=== PATIENT | male | born 1950 | race Caucasian/White ===

== ENCOUNTER → 2023-08-29 07:39 | Outpatient (REF) | payer MEDICARE, SELFPAY | LOC: RAD 07:39 | PROVIDERS: ATTENDING PHYSICIAN Family Medicine | DX: I73.9 Peripheral vascular disease, unspecified (principal); F17.200 Nicotine dependence, unspecified, uncomplicated; J44.9 Chronic obstructive pulmonary disease, unspecified; F17.210 Nicotine dependence, cigarettes, uncomplicated | CPT/HCPCS: 71271; 93922; 93925 ==

== ENCOUNTER 2024-01-19 04:17 | Emergency (ER) | payer MEDICARE, SELFPAY ==
[2024-01-19] VITALS (8 sets, daily range): BP systolic 163–217; BP diastolic 91–148; BMI 23.3
--- NOTE | 2024-01-19 04:39 | EDRN ---
Pt says he asked his phone where his heart is and when told it is on the left side of his body, pt drove to ED. Pt says about 1 hour ago he woke with pain L side of his chest that is fading now. No sob, abd pain, n/v, fever/chills, diaphoresis,
dizziness, weakness. Pt denies radiation of cp. Pt has chronic cough. Pt had similar pain 'years ago' and says he had a heart attack but has been fine since. Pt did not take anything for cp.
[2024-01-19 04:57] LABS: % Basophils 0.4 % (0-2); % Eosinophils 0.8 % (0-6); % Immature Granulocytes 0.4 % (0-0.5); % Lymphocytes 15.1 % (20.5-51.1); % Monocytes 5.8 % (1.7-9.3); % Neutrophils 77.5 % (42.2-75.2); Absolute Eosinophils 0.1 10^3/uL (0-0.7); Absolute Lymphocytes 1.2 10^3/uL (1.2-3.4); Absolute Monocytes 0.5 10^3/uL (0.1-0.6); Hematocrit 40.1 % (39.0-52.0); Hemoglobin 13.7 g/dL (13.0-18.0); Mean Corp Hgb Conc. 34.2 g/dL (33.0-37.0); Mean Corpuscular Hgb 35.8 pg (27.0-31.0); Mean Corpuscular Volume 104.7 fL (80.0-94.0); Mean Platelet Volume 9.9 fL (7.4-10.4); Nucleated Red Blood Cells % 0 % (-); Platelet Count 144 10^3/uL (130-400); Red Blood Cell Count 3.83 10^6/uL (4.70-6.10); Red Cell Dist. Width 13.2 % (11.5-14.5); White Blood Cell Count 7.8 10^3/uL (4.8-10.8)
--- NOTE | 2024-01-19 05:14 | ED.GENMED ---
History of Present Illness
<Edmond Wang MD - Last Filed: 01/19/24 05:20>
General
Chief Complaint: Chest Pain
Source: patient
Exam Limitations: none
Time Seen by Provider: 01/19/24 04:34
Nursing documentation reviewed up to this point in time: agreed with
History of Present Illness
History of Present Illness:
73-year-old male with a past medical history of hypertension, hyperlipidemia, seizures, smoker, chronic alcohol use, CAD status post stent who presents to the emergency room for evaluation of chest pain. Patient reports onset of symptoms a few
hours ago while at rest and they have been constant and he says improved a bit since then. He reports a vague aching in the left chest. He reports associated sensation of palpitations or heart racing. Reports some mild shortness of breath. He
denies any nausea, vomiting, diaphoresis. He has a chronic cough no worse than usual. Denies any recent fevers or chills or URI symptoms. Denies any swelling or pain in the legs. He denies any other complaints.
Past History
<Edmond Wang MD - Last Filed: 01/19/24 05:20>
Past History
ED Past Medical History: CAD, HTN, Hypercholesterolemia, MT and Seizures
ED Past Surgical History: Cardiac
Social History
Tobacco: Smoker
Alcohol: Chronic alcoholic
Drug: None
Personal:
Living: with family
Employment: Retired
Family History
Family History: Other (nc)
Review of Systems
<Edmond Wang MD - Last Filed: 01/19/24 05:20>
Review of Systems
All Other Systems: ROS reviewed and negative except as documented in HPI and ROS
Constitutional: Denies fever or chills
EENT: Denies sore throat or runny nose
Respiratory: Reports cough and trouble breathing
Cardiac: Reports chest pain and palpitations; Denies diaphoresis or syncope
ABD/GI: Denies abdominal pain, nausea or vomiting
: Denies flank pain
Musculoskeletal: Denies edema, neck pain or back pain
Neurological: Denies dizzy or headache
Phy Exam
<Edmond Wang MD - Last Filed: 01/19/24 05:20>
Physical Exam
Physical Exam:
General: Awake, alert, oriented x3; no acute distress
Head: Normocephalic, atraumatic
Eyes: Conjunctiva normal
Throat: Airway intact, handling secretions
Neck: Trachea midline, supple without meningismus
Lungs: Breathing comfortably no distress, occasional scattered wheezing
Heart: Regular rate and rhythm, no murmurs, gallops, or rubs
Abd: Soft, non distended, nontender
Neuro: No gross deficits
Extremities: No edema in extremities, equal pulses in all extremities
Scores
<Edmond Wang MD - Last Filed: 01/19/24 05:20>
Heart Failure Risk
Heart Failure Risk Score: Not Applicable
Heart Score for Chest Pain Patients
STEMI patient?: No
History: Slightly or Non-Suspicious
ECG: Normal
Age: >/= 65 years
Risk Factors: >/= 3 Risk Factors or History of CAD
Troponin: </= Normal Limit
Heart Score for Chest Pain Patients: 4
Heart Score Risk: 20.3% MACE over next 6 weeks
Withdrawal Assessment of Alcohol
Withdrawal Assessment Completed?: Not applicable
<Collin Vega DO - Last Filed: 01/19/24 08:43>
Heart Score for Chest Pain Patients
Heart Score for Chest Pain Patients: 4
Heart Score Risk: 20.3% MACE over next 6 weeks
Course
<Edmond Wang MD - Last Filed: 01/19/24 05:20>
Orders/Labs/Results
Orders:
Orders
01/19/24 04:18
Electrocardiogram (*1) Urgent
Reason for Study: Chest Pain
EKG- Treatment ONCE
01/19/24 04:36
CR Chest - 2 Views Urgent
Comment:
Reason For Exam: cough, chest pain
01/19/24 04:43
Alcohol Urgent
COVID-19 Antigen Urgent
Source: Nasal Swab
Complete Blood Count/With Diff Urgent
Comprehensive Metabolic Panel Urgent
Lipase Urgent
Comment: ADDED
Troponin I Urgent
Influenza A+B Rapid Molecular Urgent
QUYEN Source: Nasal Swab
Specimen Description:
01/19/24 05:23
D-Dimer Urgent
01/19/24 05:25
Add On- LAB Urgent
Tests Added?: alcohol and lipase
01/19/24 06:36
CT Chest Pe Study Urgent
Comment:
Reason For Exam: Chest pain, elevated dimer
01/19/24 07:53
Troponin I Urgent
01/19/24 08:42
Morphine Sulfate 4 mg IV NOW STA
Abnormal Lab Results
01/19/24 01/19/24
04:43 05:23
RBC 3.83 L 10^6/uL
(4.70-6.10)
MCV 104.7 H fL
(80.0-94.0)
MCH 35.8 H pg
(27.0-31.0)
Neutrophils % 77.5 H %
(42.2-75.2)
Lymphocytes % 15.1 L %
(20.5-51.1)
D-Dimer 6.04 H ug/mlFEU
(0.00-0.50)
Creatinine 0.6 L mg/dL
(0.7-1.3)
Glucose 102 H mg/dl
(70-99)
01/19/24 04:43
01/19/24 04:43
Vital Signs
Initial and Last Documented VS:
Initial Vital Signs
Temp Pulse Resp Pulse Ox
98.9 F 83 26 98
01/19/24 04:26 01/19/24 04:26 01/19/24 04:26 01/19/24 04:26
Last Documented Vital Signs
Temp Pulse Resp BP Pulse Ox
98.9 F 62 21 163/91 93
01/19/24 04:26 01/19/24 06:00 01/19/24 06:00 01/19/24 06:05 01/19/24 06:00
<Collin Vega, DO - Last Filed: 01/19/24 08:43>
Orders/Labs/Results
Orders:
Orders
01/19/24 04:18
Electrocardiogram (*1) Urgent
Reason for Study: Chest Pain
EKG- Treatment ONCE
01/19/24 04:36
CR Chest - 2 Views Urgent
Comment:
Reason For Exam: cough, chest pain
01/19/24 04:43
Alcohol Urgent
COVID-19 Antigen Urgent
Source: Nasal Swab
Complete Blood Count/With Diff Urgent
Comprehensive Metabolic Panel Urgent
Lipase Urgent
Comment: ADDED
Troponin I Urgent
Influenza A+B Rapid Molecular Urgent
QUYEN Source: Nasal Swab
Specimen Description:
01/19/24 05:23
D-Dimer Urgent
01/19/24 05:25
Add On- LAB Urgent
Tests Added?: alcohol and lipase
01/19/24 06:36
CT Chest Pe Study Urgent
Comment:
Reason For Exam: Chest pain, elevated dimer
01/19/24 07:53
Troponin I Urgent
01/19/24 08:42
Morphine Sulfate 4 mg IV NOW STA
Abnormal Lab Results
01/19/24 01/19/24
04:43 05:23
RBC 3.83 L 10^6/uL
(4.70-6.10)
MCV 104.7 H fL
(80.0-94.0)
MCH 35.8 H pg
(27.0-31.0)
Neutrophils % 77.5 H %
(42.2-75.2)
Lymphocytes % 15.1 L %
(20.5-51.1)
D-Dimer 6.04 H ug/mlFEU
(0.00-0.50)
Creatinine 0.6 L mg/dL
(0.7-1.3)
Glucose 102 H mg/dl
(70-99)
01/19/24 04:43
01/19/24 04:43
Vital Signs
Initial and Last Documented VS:
Initial Vital Signs
Temp Pulse Resp Pulse Ox
98.9 F 83 26 98
01/19/24 04:26 01/19/24 04:26 01/19/24 04:26 01/19/24 04:26
Last Documented Vital Signs
Temp Pulse Resp BP Pulse Ox
98.9 F 62 21 163/91 93
01/19/24 04:26 01/19/24 06:00 01/19/24 06:00 01/19/24 06:05 01/19/24 06:00
<Edmond Wang MD - Last Filed: 01/19/24 05:20>
MDM/Problems Addressed
Differential Diagnosis Includes:
Angina/ACS, costochondritis, pneumonia, PE, dysrhythmia, pericarditis, pancreatitis/gastritis
MDM/Problems Addressed:
73-year-old male presents to the ER for evaluation of chest pain for the past few hours associated with occasional palpitations and shortness of breath. Hypertensive otherwise normal vitals. Physical exam as above. EKG shows no STEMI. Plan to
check labs including a CBC and a CMP. Check troponins. Check D-dimer. Check chest x-ray. Will monitor on telemetry, reassess after the above.
Chronic conditions affecting care:
Smoker, CAD, hypertension, hyperlipidemia
Chronic conditions affecting care: HTN and CAD
<Edmond Wang MD - Last Filed: 01/19/24 05:20>
*Radiology
Radiology exam reviewed: preliminary read by ED provider
*Pulse Oximetry
Patient hypoxic: no
*EKG
Interpreted by ED Provider?: Yes
Heart Rate: 72
Rate: normal
Rhythm: sinus
Wiggins: left axis deviation
Interval: normal interval
QRS Pattern: other (Bifascicular block)
Ischemia: non-specific ST changes
*Critical Care Note
Total Time (30-74mins, 75-104mins- exclusive of procedures): Not Applicable
Data Reviewed
Review of Other/Old Records Reveals: Labs and Records
Source: patient and records
<Collin Vega DO - Last Filed: 01/19/24 08:43>
*Critical Care Note
Total Time (30-74mins, 75-104mins- exclusive of procedures): 35 min
comment:
The high probability of a clinically significant, sudden or life threatening deterioration of the cardiothoracic system(s) required my full and direct attention, intervention and personal management. The aggregate critical care time was 35 minutes.
This time is in addition to time spent performing reported procedures but includes the following:
[x] Data Review and interpretation
[x] Patient assessment and monitoring of vital signs
[x] Documentation
[x] Medication orders and management
<Collin Vega DO - Last Filed: 01/19/24 08:43>
Update Note
Update Note:
6:40 AM care of patient was initially transitioned pending D-dimer and troponin for atypical chest pain. D-dimer elevated. Will obtain CT PE. On evaluation of the chest x-ray, I do not appreciate any acute pneumonia or pleural effusion but I do
notice left-sided subcu emphysema.
8:[address] is consistent with acute rib fractures with moderate/severe subcu emphysema. There is a small apical pneumothorax. Given the recent fall with the CT findings, will discuss case with trauma at [facility]
8:25 AM Case discussed with [facility] trauma Dr. Retana who accepted patient and will admit to the ICU. Given the recent fall, I discussed obtaining CT head and neck but he Dr. Retana states that we can hold off and he will perform the scans at
[facility] if needed
ED Attending Note
<Edmond Wang MD - Last Filed: 01/19/24 05:20>
-
Portions of this chart may have been created with voice recognition software.� Occasional wrong word or��sound alike� substitutions may have occurred due to the inherent limitations of voice recognition software.
Discharge Plan
Departure
Patient Disposition: Acute Care Hospital
Date of Disposition: 01/19/24
Time of Disposition: 08:42
Patient with high blood pressure during this ER visit?: Yes
Discharge Problem:
Multiple rib fractures, Pneumothorax, Subcutaneous emphysema due to trauma
Prescriptions:
No Action
carvedilol [Coreg] 25 MG tablet
25 mg PO DAILY
levetiracetam 500 MG tablet
500 mg PO BID
aspirin 81 MG tablet,chewable
81 mg PO DAILY
atorvastatin 80 mg Tablet
80 mg PO DAILY
valsartan 80 mg Tablet
80 mg PO DAILY
cyanocobalamin (vitamin B-12) 5,000 mcg Capsule
5,000 mcg PO DAILY
Referrals:
Eliu Leone MD [Family Provider] - Follow up in 2-3 days
Hospital Transfer
Other hospital: [facility]
I certify that the patient requires transfer: Yes
Discussed case with accepting physician: Dr. Retana
Reason for transfer: availability of service and specialties available
Interventions
Interventions:
*Risk Screen - Suicide Last Done: 01/19/24 04:28
*General Assessment Last Done: 01/19/24 04:34
*Neglect/Abuse Screening Last Done: 01/19/24 04:34
ED- Fall Risk Assessment Last Done: 01/19/24 05:04
*ED COVID-19 Vaccine History Last Done: 01/19/24 04:19
ED- Cardiac Assessment Last Done: 01/19/24 04:55
Discharge Date and Time
Print Language: MONTENEGRIN
[2024-01-19 05:15] LABS: COVID-19 Antigen Negative (Negative)
[2024-01-19 05:21] LABS: ALT (SGPT) 24 U/L (0-50); AST (SGOT) 36 U/L (17-59); Albumin 4.2 g/dl (3.5-5.0); Alkaline Phosphatase 67 U/L (38-126); Blood Urea Nitrogen 16 mg/dl (9-20); Calcium 8.9 mg/dl (8.4-10.2); Carbon Dioxide 24 mmol/L (22-30); Chloride 101 mmol/L (98-107); Estimated Creatinine Clearance 117 ml/min; Glucose 102 mg/dl (70-99); Potassium 4.6 mmol/L (3.5-5.1); Sodium 137 mmol/L (135-145); Total Bilirubin 0.8 mg/dl (0.2-1.3); eGFR > 60.00
[2024-01-19 05:35] LABS: Troponin I 0.023 ng/ml
[2024-01-19 05:40] LABS: Alcohol 23 mg/dl; Lipase 33 U/L (23-300)
[2024-01-19 06:31] LABS: D-Dimer 6.04 ug/mlFEU (0.00-0.50)
[2024-01-19 08:29] LABS: Troponin I 0.021 ng/ml
[2024-01-19] MEDS: MORPHINE SULFATE 4 MG IV (09:08)
== END 2024-01-19 11:25 | disposition short-term general hospital (02) ==
LOC: EMR 04:17
PROVIDERS: EMERGENCY PHYSICIAN Emergency Medicine; FAMILY PHYSICIAN Family Medicine
DX: S22.42XA Multiple fractures of ribs, left side, initial encounter for closed fracture (principal); S27.0XXA Traumatic pneumothorax, initial encounter; T79.7XXA Traumatic subcutaneous emphysema, initial encounter; X58.XXXA Exposure to other specified factors, initial encounter; I10 Essential (primary) hypertension; E78.00 Pure hypercholesterolemia, unspecified; F17.200 Nicotine dependence, unspecified, uncomplicated; I25.10 Atherosclerotic heart disease of native coronary artery without angina pectoris; Z11.52 Encounter for screening for COVID-19
CPT/HCPCS: 99291; 96374; 71046; 71275; 80053; 82077; 83690; 84484; 85025; 85379; 87502; 87811; 93005; Q9967

== ENCOUNTER 2024-04-10 23:54 | Inpatient (IN) | payer MEDICARE, SELFPAY ==
[2024-04-10] VITALS (14 sets, daily range): BP systolic 93–237; BP diastolic 49–133
[2024-04-10 21:34] LABS: % Basophils 0.2 % (0-2); % Eosinophils 0.2 % (0-6); % Immature Granulocytes 0.5 % (0-0.5); % Lymphocytes 6.1 % (20.5-51.1); Absolute Immature Granulocytes 0.1 10^3/uL (0-0.05); Absolute Lymphocytes 0.8 10^3/uL (1.2-3.4); Absolute Monocytes 0.6 10^3/uL (0.1-0.6); Absolute Neutrophils 11.3 10^3/uL (1.4-6.5); Hematocrit 38.1 % (39.0-52.0); Hemoglobin 12.3 g/dL (13.0-18.0); Mean Corp Hgb Conc. 32.3 g/dL (33.0-37.0); Mean Corpuscular Hgb 35.3 pg (27.0-31.0); Mean Corpuscular Volume 109.5 fL (80.0-94.0); Mean Platelet Volume 9.8 fL (7.4-10.4); Nucleated Red Blood Cells % 0 % (-); Platelet Count 144 10^3/uL (130-400); Red Blood Cell Count 3.48 10^6/uL (4.70-6.10); Red Cell Dist. Width 14.9 % (11.5-14.5); White Blood Cell Count 12.8 10^3/uL (4.8-10.8)
[2024-04-10 21:37] LABS: Venous Blood Gas B.E. 3.3 mmol/L (-4 to +4); Venous Blood Gas O2 Sat % 60.3 %; Venous Blood Gas pH 7.24 (7.32-7.43); Venous Blood Gas pO2 43 mmHg (30-50)
[2024-04-10 21:39] LABS: Venous Blood Gas pCO2 77 mmHg (35-48)
[2024-04-10] MEDS: NITROGLYCERIN PREMIX 250 IV (21:41)
[2024-04-10 21:46] LABS: ALT (SGPT) 28 U/L (0-50); AST (SGOT) 31 U/L (17-59); Albumin 3.4 g/dl (3.5-5.0); Alkaline Phosphatase 84 U/L (38-126); Blood Urea Nitrogen 30 mg/dl (9-20); Calcium 8.3 mg/dl (8.4-10.2); Carbon Dioxide 36 mmol/L (22-30); Chloride 102 mmol/L (98-107); Glucose 144 mg/dl (70-99); Potassium 4.2 mmol/L (3.5-5.1); Sodium 140 mmol/L (135-145); Total Bilirubin 0.8 mg/dl (0.2-1.3); Total Protein 6.1 g/dl (6.3-8.2); eGFR > 60.00
[2024-04-10] MEDS: ATIVAN 1 MG IV (21:50)
[2024-04-10] MEDS: LASIX 60 MG IV (21:55)
[2024-04-10 21:59] LABS: NT-proBNP 1500 pg/ml; Troponin I 0.029 ng/ml
[2024-04-10] MEDS: DUONEB 6 ML INH (22:07)
--- NOTE | 2024-04-10 22:10 | ED.GENMED ---
History of Present Illness
<Marvin Smith PA-C - Last Filed: 04/11/24 01:19>
General
Chief Complaint: Breathing Problem
Time Seen by Provider: 04/10/24 21:18
History of Present Illness
History of Present Illness:
73-year-old male with history of hypertension, hyperlipidemia, and chronic alcohol abuse presents to the emergency department for evaluation of shortness of breath. Patient states he has had difficulty breathing for the past 3 days. Denies any
fevers or chest pain at this time. Does have a past history of IA status post angioplasty with stent to the circumflex in 2003 most recent echocardiogram as of 2017 shows preserved cardiac function. Patient states his last alcoholic beverage was
about 2 to 3 days ago, states he used to drink vodka heavily but does not drink nearly as much at this point. No cough or purulent sputum
Past History
<aMrvin Smith PA-C - Last Filed: 04/11/24 01:19>
Past History
ED Past Medical History: CAD, HTN, Hypercholesterolemia, IA and Seizures
ED Past Surgical History: Cardiac
Social History
Tobacco: Smoker
Alcohol: Chronic alcoholic
Drug: None
Personal:
Living: with family
Employment: Retired
Family History
Family History: Other (nc)
Review of Systems
<Marvin Smith PA-C - Last Filed: 04/11/24 01:19>
Review of Systems
Allergies reviewed?: Yes
All Other Systems: ROS reviewed and negative except as documented in HPI and ROS
Phy Exam
<Marvin Smith PA-C - Last Filed: 04/11/24 01:19>
Physical Exam
Physical Exam:
GEN: Ill-appearing, no acute respiratory distress
Eyes: PERRLA, EOMs intact, no scleral icterus
HENT: NCAT, oral mucosa moist, no JVD, no cervical adenopathy.
Lungs: Acute respiratory distress, tachypneic, widespread accessory muscle use noted, crackles heard throughout lung keith with diminished bases
Cardiac: RRR, no M/R/G, no peripheral edema. Radial pulses 2+ bilat
Neuro: AO x 3
MSK: No gross deformity or ecchymosis. No edema. No digital clubbing
Skin: No rashes, petechiae. Normal color, no pallor or jaundice.
Psych: Anxious
Scores
<Marvin Smith PA-C - Last Filed: 04/11/24 01:19>
Heart Failure Risk
Heart Failure Risk Score: Yes
History of Stroke or TIA: No
History of intubation for respiratory distress: No
Heart rate on ED arrival >/= 110: Yes
SaO2 <90% on arrival on room air: Yes
HR >/=110 during 3min walk test (or too ill to perform test): Yes
ECG has acute ischemic changes: No
Urea >/=12mmol/L (BUN 33.6mg/dL): No
Serum CO2>/=35mmol/L: Yes
Troponin I or T elevated to IA Level (0.4mg/dL): No
NT-proBNP >/=5,000ng/L (5,000pg/ml): No
HF Risk Score: 5
Admission Status: VERY HIGH RISK 39.8% Consider admission to hospital
Course
<Marvin Smith PA-C - Last Filed: 04/11/24 01:19>
Orders/Labs/Results
Orders:
Orders
04/10/24 21:17
EKG [Electrocardiogram (*1)] Urgent
Reason for Study: Shortness of Breath
EKG- Treatment ONCE
04/10/24 21:18
Portable Chest Xray [CR Chest Portable - 1 View] Urgent
Comment:
Reason For Exam: SOB
Reason Study Needs to be Portable: Unable to Transport
04/10/24 21:23
Bipap [RESP] Urgent
Patient to use own unit?: No
Inspiratory Pressure (cm H2O): 12
Expiratory Pressure (cm H2O): 6
04/10/24 21:25
BNP [NT-proBNP] Urgent
CBC/With Diff [Complete Blood Count/With Diff] Urgent
CMP [Comprehensive Metabolic Panel] Urgent
Troponin I Urgent
Venous Blood Gas Urgent
%Oxygen/Room Air: 93
04/10/24 21:30
Nitroglycerin 100 mg/250 ml [Nitroglycerin Premix] 100 mg in 250 ml .ROUTE .STK-MED
Nitroglycerin 100 mg/250 ml [Nitroglycerin Premix] 100 mg in 250 ml IV PER PROTOCOL
Initial dose in mcg/min, then titrate:: 60
Titrate to keep:: SBP < 160 mmHg
Titrate by mcg/min:: 5 mcg/min, may increase by 10 mcg/min if dose > 20 mcg/min
Frequency of titrations (minutes):: every 3-5 minutes
Maximum dose in mcg/min:: 200
Begin to taper infusion when:: Remained at goal for 2hrs
Taper by mcg/min:: 5 mcg/min
Frequency of taper (minutes) if patient maintains goal:: 30
Taper to off?: Yes
If infusion off & no longer maintaining goal:: Contact Provider
04/10/24 21:48
Lorazepam [Ativan] 2 mg .ROUTE .STK-MED ONE
04/10/24 21:49
Furosemide [Lasix] 60 mg IV NOW STA
Furosemide [Lasix] 80 mg .ROUTE .STK-MED ONE
04/10/24 21:50
Lorazepam [Ativan] 1 mg IV NOW STA
04/10/24 21:57
COVID-19 Antigen Urgent
Source: Nasal Swab
Influenza A+B Rapid Molecular Urgent
QUYEN Source: Nasal Swab
Specimen Description:
04/10/24 22:04
Ipratropium/Albuterol Sulfate [Duoneb] 6 ml INH R NOW ONE
04/10/24 23:24
Admit/Transfer Patient As Directed
Co-Sign Provider:
Level of Care: Inpatient admission
Assign to:: IMU- Intermediate Care
Physician / Group: abelino
Diagnosis: hypertensive emergency, chf exacerbation
Reason for Hospitalization: hypertensive emergency, chf exacerbation
Expected length of stay greater than two midnights?: Yes
ELOS- Estimated Length of Stay in days: 2
I certify the patient meets the requirements for IP care: Yes
PRN Pain Medication Management As Directed
May give lesser potent ordered pain med per pt: Yes
preference::
Protocol:: Medication orders for pain may be administered in a
manner that supports deferring to patient preference
when the pt is:
- Requesting an ordered lesser potent pain medication.
Least to most potent pain medications are defined
as: acetaminophen < NSAID < tramadol < opioids
(morphine, oxycodone, hydromorphone).
- Requesting a lesser dose of the same medication IF
ORDERED.
- Requesting a less intrusive route of administration
if both routes are prescribed by the provider (PO <
IV).
04/10/24 23:25
Code Status As Directed
Resuscitation Status: Full Code
04/10/24 23:30
Arterial Blood Gas Urgent
%Oxygen/Room Air: 80
04/10/24 23:34
CARDIOLOGY CONSULT Routine
Consulting Provider: Luis A Stinson
Was physician already notified: No
Reason for consult: chf
Consult Notification Routine
Specialty to Notify: Cardiology
04/11/24 00:43
Troponin I Q6H
04/11/24 00:43
Activity As Directed
Activity Level: As Tolerated
Bladder Scan As Directed
Follow Bladder Retention/Intermittent Cath Algorithm?: Yes
PRN if no void in __ hours: 6
Frequency: Per Retention Algorithm
If Bladder Scan Result >: 400
then:: Straight cath
I/O [Intake/ Output] As Directed
Frequency: Per unit guidelines
Straight Cath As Directed
Frequency: Per Retention Algorithm
Additional Instructions: straight cath as needed per acute urinary retention algorithm for 24 hrs
Additional Instructions: for bladder scan greater than 400 mL
Vital Signs As Directed
Frequency: Per unit guidelines
Weight As Directed
Frequency: Daily
DX Deep Vein Thrombosis Video Routine
04/11/24 06:00
Complete Blood Count/With Diff IN AM
Comprehensive Metabolic Panel IN AM
04/11/24 06:43
Troponin I Q6H
04/11/24 08:00
Aspirin Chewable [Low Strength Aspirin] 81 mg PO DAILY
Atorvastatin [Lipitor] 80 mg PO DAILY
Carvedilol [Coreg] 25 mg PO BID
Cyanocobalamin [Vitamin B-12] 1,000 mcg PO DAILY
Furosemide [Lasix] 40 mg IV DAILY
Heparin 5,000 units SC Q12
Levetiracetam [Keppra] 500 mg PO BID
Valsartan [Diovan] 80 mg PO DAILY
04/11/24 12:43
Troponin I Q6H
04/11/24 Dinner
Cholesterol Lowering
Cholesterol Lowering: Sodium, 2 Gram
Abnormal Lab Results
04/10/24 04/10/24
21:25 23:30
WBC 12.8 H 10^3/uL
(4.8-10.8)
RBC 3.48 L 10^6/uL
(4.70-6.10)
Hgb 12.3 L g/dL
(13.0-18.0)
Hct 38.1 L %
(39.0-52.0)
MCV 109.5 H fL
(80.0-94.0)
MCH 35.3 H pg
(27.0-31.0)
MCHC 32.3 L g/dL
(33.0-37.0)
RDW 14.9 H %
(11.5-14.5)
Abs Immat Gran (auto) 0.1 H 10^3/uL
(0-0.05)
Absolute Neuts (auto) 11.3 H 10^3/uL
(1.4-6.5)
Absolute Lymphs (auto) 0.8 L 10^3/uL
(1.2-3.4)
Neutrophils % 88.0 H %
(42.2-75.2)
Lymphocytes % 6.1 L %
(20.5-51.1)
pH 7.50 H
(7.35-7.45)
HCO3 31.2 H mmol/L
(21-28)
ABG O2 Sat (Measured) 98.9 H %
(94-98)
VBG pH 7.24 L
(7.32-7.43)
VBG pCO2 77 H* mmHg
(35-48)
VBG HCO3 33.0 H mmol/L
(22-27)
Carbon Dioxide 36 H mmol/L
(22-30)
BUN 30 H mg/dl
(9-20)
Creatinine 0.6 L mg/dL
(0.7-1.3)
Glucose 144 H mg/dl
(70-99)
Calcium 8.3 L mg/dl
(8.4-10.2)
Total Protein 6.1 L g/dl
(6.3-8.2)
Albumin 3.4 L g/dl
(3.5-5.0)
04/10/24 21:25
04/10/24 21:25
Vital Signs
Initial and Last Documented VS:
Initial Vital Signs
Pulse Resp BP Pulse Ox
78 24 220/113 97
04/10/24 21:19 04/10/24 21:19 04/10/24 21:19 04/10/24 21:19
Last Documented Vital Signs
Temp Pulse Resp BP Pulse Ox
97.8 F 82 17 152/84 97
04/11/24 01:08 04/11/24 01:00 04/11/24 01:00 04/11/24 01:00 04/11/24 01:04
<Mahogany Flores, DO - Last Filed: 04/10/24 22:59>
Orders/Labs/Results
Orders:
Orders
04/10/24 21:17
EKG [Electrocardiogram (*1)] Urgent
Reason for Study: Shortness of Breath
EKG- Treatment ONCE
04/10/24 21:18
Portable Chest Xray [CR Chest Portable - 1 View] Urgent
Comment:
Reason For Exam: SOB
Reason Study Needs to be Portable: Unable to Transport
04/10/24 21:23
Bipap [RESP] Urgent
Patient to use own unit?: No
Inspiratory Pressure (cm H2O): 12
Expiratory Pressure (cm H2O): 6
04/10/24 21:25
BNP [NT-proBNP] Urgent
CBC/With Diff [Complete Blood Count/With Diff] Urgent
CMP [Comprehensive Metabolic Panel] Urgent
Troponin I Urgent
Venous Blood Gas Urgent
%Oxygen/Room Air: 93
04/10/24 21:30
Nitroglycerin 100 mg/250 ml [Nitroglycerin Premix] 100 mg in 250 ml .ROUTE .STK-MED
Nitroglycerin 100 mg/250 ml [Nitroglycerin Premix] 100 mg in 250 ml IV PER PROTOCOL
Initial dose in mcg/min, then titrate:: 60
Titrate to keep:: SBP < 160 mmHg
Titrate by mcg/min:: 5 mcg/min, may increase by 10 mcg/min if dose > 20 mcg/min
Frequency of titrations (minutes):: every 3-5 minutes
Maximum dose in mcg/min:: 200
Begin to taper infusion when:: Remained at goal for 2hrs
Taper by mcg/min:: 5 mcg/min
Frequency of taper (minutes) if patient maintains goal:: 30
Taper to off?: Yes
If infusion off & no longer maintaining goal:: Contact Provider
04/10/24 21:48
Lorazepam [Ativan] 2 mg .ROUTE .STK-MED ONE
04/10/24 21:49
Furosemide [Lasix] 60 mg IV NOW STA
Furosemide [Lasix] 80 mg .ROUTE .STK-MED ONE
04/10/24 21:50
Lorazepam [Ativan] 1 mg IV NOW STA
04/10/24 21:57
COVID-19 Antigen Urgent
Source: Nasal Swab
Influenza A+B Rapid Molecular Urgent
QUYEN Source: Nasal Swab
Specimen Description:
04/10/24 22:04
Ipratropium/Albuterol Sulfate [Duoneb] 6 ml INH R NOW ONE
04/10/24 23:24
Admit/Transfer Patient As Directed
Co-Sign Provider:
Level of Care: Inpatient admission
Assign to:: IMU- Intermediate Care
Physician / Group: abelino
Diagnosis: hypertensive emergency, chf exacerbation
Reason for Hospitalization: hypertensive emergency, chf exacerbation
Expected length of stay greater than two midnights?: Yes
ELOS- Estimated Length of Stay in days: 2
I certify the patient meets the requirements for IP care: Yes
PRN Pain Medication Management As Directed
May give lesser potent ordered pain med per pt: Yes
preference::
Protocol:: Medication orders for pain may be administered in a
manner that supports deferring to patient preference
when the pt is:
- Requesting an ordered lesser potent pain medication.
Least to most potent pain medications are defined
as: acetaminophen < NSAID < tramadol < opioids
(morphine, oxycodone, hydromorphone).
- Requesting a lesser dose of the same medication IF
ORDERED.
- Requesting a less intrusive route of administration
if both routes are prescribed by the provider (PO <
IV).
04/10/24 23:25
Code Status As Directed
Resuscitation Status: Full Code
04/10/24 23:30
Arterial Blood Gas Urgent
%Oxygen/Room Air: 80
04/10/24 23:34
CARDIOLOGY CONSULT Routine
Consulting Provider: Luis A Stinson
Was physician already notified: No
Reason for consult: chf
Consult Notification Routine
Specialty to Notify: Cardiology
04/11/24 00:43
Troponin I Q6H
04/11/24 00:43
Activity As Directed
Activity Level: As Tolerated
Bladder Scan As Directed
Follow Bladder Retention/Intermittent Cath Algorithm?: Yes
PRN if no void in __ hours: 6
Frequency: Per Retention Algorithm
If Bladder Scan Result >: 400
then:: Straight cath
I/O [Intake/ Output] As Directed
Frequency: Per unit guidelines
Straight Cath As Directed
Frequency: Per Retention Algorithm
Additional Instructions: straight cath as needed per acute urinary retention algorithm for 24 hrs
Additional Instructions: for bladder scan greater than 400 mL
Vital Signs As Directed
Frequency: Per unit guidelines
Weight As Directed
Frequency: Daily
DX Deep Vein Thrombosis Video Routine
04/11/24 06:00
Complete Blood Count/With Diff IN AM
Comprehensive Metabolic Panel IN AM
04/11/24 06:43
Troponin I Q6H
04/11/24 08:00
Aspirin Chewable [Low Strength Aspirin] 81 mg PO DAILY
Atorvastatin [Lipitor] 80 mg PO DAILY
Carvedilol [Coreg] 25 mg PO BID
Cyanocobalamin [Vitamin B-12] 1,000 mcg PO DAILY
Furosemide [Lasix] 40 mg IV DAILY
Heparin 5,000 units SC Q12
Levetiracetam [Keppra] 500 mg PO BID
Valsartan [Diovan] 80 mg PO DAILY
04/11/24 12:43
Troponin I Q6H
04/11/24 Dinner
Cholesterol Lowering
Cholesterol Lowering: Sodium, 2 Gram
Abnormal Lab Results
04/10/24 04/10/24
21 23:30
WBC 12.8 H 10^3/uL
(4.8-10.8)
RBC 3.48 L 10^6/uL
(4.70-6.10)
Hgb 12.3 L g/dL
(13.0-18.0)
Hct 38.1 L %
(39.0-52.0)
MCV 109.5 H fL
(80.0-94.0)
MCH 35.3 H pg
(27.0-31.0)
MCHC 32.3 L g/dL
(33.0-37.0)
RDW 14.9 H %
(11.5-14.5)
Abs Immat Gran (auto) 0.1 H 10^3/uL
(0-0.05)
Absolute Neuts (auto) 11.3 H 10^3/uL
(1.4-6.5)
Absolute Lymphs (auto) 0.8 L 10^3/uL
(1.2-3.4)
Neutrophils % 88.0 H %
(42.2-75.2)
Lymphocytes % 6.1 L %
(20.5-51.1)
pH 7.50 H
(7.35-7.45)
HCO3 31.2 H mmol/L
(21-28)
ABG O2 Sat (Measured) 98.9 H %
(94-98)
VBG pH 7.24 L
(7.32-7.43)
VBG pCO2 77 H* mmHg
(35-48)
VBG HCO3 33.0 H mmol/L
(22-27)
Carbon Dioxide 36 H mmol/L
(22-30)
BUN 30 H mg/dl
(9-20)
Creatinine 0.6 L mg/dL
(0.7-1.3)
Glucose 144 H mg/dl
(70-99)
Calcium 8.3 L mg/dl
(8.4-10.2)
Total Protein 6.1 L g/dl
(6.3-8.2)
Albumin 3.4 L g/dl
(3.5-5.0)
04/10/24 21:25
04/10/24 21:25
Vital Signs
Initial and Last Documented VS:
Initial Vital Signs
Pulse Resp BP Pulse Ox
78 24 220/113 97
04/10/24 21:19 04/10/24 21:19 04/10/24 21:19 04/10/24 21:19
Last Documented Vital Signs
Temp Pulse Resp BP Pulse Ox
97.8 F 82 17 152/84 97
04/11/24 01:08 04/11/24 01:00 04/11/24 01:00 04/11/24 01:00 04/11/24 01:04
<Marvin Smith PA-C - Last Filed: 04/11/24 01:19>
MDM/Problems Addressed
MDM/Problems Addressed:
73-year-old male arrives in acute respiratory distress most likely secondary to hypertensive urgency/acute congestive heart failure. He was initially started on BiPAP however did not tolerate this, was transitioned to high flow nasal cannula with
tenuous oxygen saturations however work of breathing dramatically improved after initiation of nitro infusion for antihypertensive therapy as well as diuresis. He has no chest pain thus do not suspect acute pulmonary embolism particular given the
marked hypertension. Chest x-ray suggestive of interstitial edema, less likely pneumonia. Will admit to the medicine service for further management.
<Mahogany Flores DO - Last Filed: 04/10/24 22:59>
*Critical Care Note
Total Time (30-74mins, 75-104mins- exclusive of procedures): 65
comment:
The high probability of a clinically significant, sudden or life threatening deterioration of the pulmonary and cardiovascular system(s), flash pulmonary edema and hypertensive emergency, required my full and direct attention, intervention and
personal management. The aggregate critical care time was 65 minutes. This time is in addition to time spent performing reported procedures but includes the following:
[x] Data Review and interpretation
[x] Patient assessment and monitoring of vital signs
[x] Documentation
[x] Medication orders and management
ED Attending Note
<Marvin Smith PA-C - Last Filed: 04/11/24 01:19>
-
Portions of this chart may have been created with voice recognition software.� Occasional wrong word or��sound alike� substitutions may have occurred due to the inherent limitations of voice recognition software.
<Mahogany Flores DO - Last Filed: 04/10/24 22:59>
ED Attending Note
Patient seen and examined by attending physician: Yes
I performed the substantive portion of visit, reviewed & personally made and approve the management plan that is documented in note by myself or SAM.: Yes
I performed a history and physical exam of patient and discussed management with resident, I reviewed resident's note and agree with documented findings and plan of care.: Yes
ED Attending Note:
73-year-old male with history of hypertension, hyperlipidemia, chronic alcohol abuse presenting to the emergency department for shortness of breath. Patient reports shortness of breath for the past several days which worsened prior to arrival.
Patient arrives by medic, on nonrebreather, tachypneic. Limited historian given clinical condition. Denies infectious symptoms. Vital signs significant for marked hypertension, tachypnea, hypoxia.
On exam, patient in moderate to severe respiratory distress with increased work of breathing. On lung exam, crackles bilaterally. Concern for flash pulmonary edema versus hypertensive emergency. Respiratory called for BiPAP. Starting
nitroglycerin drip. No significant lower extremity edema.
22:00 - Patient is not tolerating BiPAP secondary to anxiety. Does have hypercapnia, may also have concomitant COPD component, known smoker. He is becoming increasingly anxious on the BiPAP, despite multiple conversations about importance of
maintaining. Will try high flow nasal cannula for oxygenation with nitroglycerin. Blood pressure is improving on the nitro.
22:50 - Patient appears more comfortable on reassessment. Blood pressure has improved. Chest x-ray consistent with pulmonary edema. Patient saturations are intermittently dipping to the high 80s. In discussion with patient, he is willing to try
BiPAP again. Plan for admission for hypertensive emergency and concern of congestive heart failure
Discharge Plan
Departure
Patient Disposition: Admit
Date of Disposition: 04/10/24
Time of Disposition: 23:07
Admit to: ICU
Presentation/result/management discussed w/ accepting MD/DO: Hospitalist
Discharge Problem:
Acute CHF, Acute respiratory failure with hypoxia and hypercapnia
Interventions
Interventions:
*Risk Screen - Suicide Last Done: 04/10/24 21:22
*General Assessment Last Done: 04/10/24 21:22
*Neglect/Abuse Screening Last Done: 04/10/24 21:22
ED- Fall Risk Assessment Last Done: 04/10/24 21:43
*Nursing Disposition Last Done: 04/11/24 01:03
ED- Cardiac Assessment Last Done: 04/10/24 21:43
ED- Pulmonary Assessment Last Done: 04/10/24 21:43
Discharge Date and Time
Discharge Date/Time: 04/11/24 01:04
[2024-04-10 22:22] LABS: COVID-19 Antigen Negative (Negative)
--- NOTE | 2024-04-10 23:30 | HPS.HSE ---
Family Physician
-
Family Physician: Eliu Leone
Chief Complaint
-
shortness of breath
History of Present Illness
73-year-old male past medical history of seizure disorder, CAD, hypertension, hyperlipidemia, alcohol use disorder presenting with shortness of breath. He has had shortness of breath for the past 3 days. Denies fever or chest pain. Denies cough.
He has some lower extremity swelling. Complains of some discomfort in his legs and numbness on the bottom side of his feet. He has been compliant with his medications.
He smokes 1 pack of cigarettes a week. He states that he drinks less alcohol these days sometimes up to 2-3 drinks per day at most. His last alcoholic drink was 3 to 4 days ago.
Medical History
Past Medical History
Past Medical History: Reports Other (CAD, hypertension, hyperlipidemia, alcohol use disorder )
Past Surgical History: Reports None
Social History
Tobacco: Non-smoker
Alcohol: None
Drug: None
Family History
Family History: Not pertinent
Allergies / Home Medications
Allergies reflects when Allergies were last updated in [facility].
Home Medications with original date entered in [facility]
Allergy/Medication List:
Allergies
Allergy/AdvReac Type Severity Reaction Status Date / Time
No Known Allergies Allergy Verified 01/19/24 04:17
Home Medications
aspirin 81 mg chewable tablet 81 mg PO DAILY 10/26/17
carvedilol 25 mg tablet (Coreg) 25 mg PO BID 10/26/17
levetiracetam 500 mg tablet 500 mg PO BID 10/26/17
atorvastatin 80 mg tablet 80 mg PO DAILY 01/19/24
valsartan 80 mg tablet 80 mg PO DAILY 01/19/24
cyanocobalamin (vitamin B-12) 1,000 mcg tablet 1,000 mcg PO DAILY 04/10/24
Review of Systems
-
History Source: Patient
A 12 point ROS was completed and negative except as noted: Yes
Constitutional: Reports No Symptoms
EENT: Reports No Symptoms
Respiratory: Reports See HPI
Cardiac: Reports See HPI
Abdomen/GI: Reports No Symptoms
: Reports No Symptoms
Musculoskeletal: Reports No Symptoms
Skin: Reports No Symptoms
Neurological: Reports No Symptoms
Endocrine: Reports No Symptoms
Hematologic/Lymphatic: Reports No Symptoms
Psych: Reports No Symptoms
Physical Exam
Vital Signs
Vital Signs
Temp Pulse Resp BP Pulse Ox
98.4 F 97 20 135/115 93
04/10/24 21:22 04/10/24 23:15 04/10/24 23:15 04/10/24 23:01 04/10/24 23:15
Physical Exam
General: Well Developed, Well Nourished and No Apparent Distress
HEENT: NormoCephalic, Moist mucous membranes and Atraumatic
Respiratory: Clear
Cardiac: S1/S2 and Regular Rhythm; No Murmur or Rub
GI: Soft, Non Tender, Non Distended and Normal Bowel Sounds; No Organomegaly
Rectal: Deferred by Provider
Musculoskeletal: No Clubbing, No Cyanosis and No Edema
Skin: No Rash
Neuro: Nonfocal/grossly intact
Laboratory Results
-
04/10/24 21:25
04/10/24 21:25
Laboratory Results
Total Bilirubin 0.8 mg/dl (0.2-1.3) 04/10/24 21:25
AST 31 U/L (17-59) 04/10/24 21:25
ALT 28 U/L (0-50) 04/10/24 21:25
Alkaline Phosphatase 84 U/L (38-126) 04/10/24 21:25
Troponin I 0.029 ng/ml 04/10/24 21:25
Data Reviewed
-
Lab Data: Labs Reviewed by me
Old Records: Reviewed
Impression/Plan
-
IMPRESSION:
PLAN:
# Acute hypercarbic respiratory failure secondary to CHF exacerbation
# Hypertensive emergency
-EKG shows sinus rhythm with PACs, right bundle branch block which is old
-VBG shows pCO2 of 77, pH of 7.24
-Cardiac BNP of 1500
-Chest x-ray appears to show pulmonary edema, report pending
-Patient initially did not tolerate BiPAP and was placed on high flow but will try to switch back to BiPAP due to hypercarbia
-COVID, influenza negative
-Check I's and O's, daily weights
-60 IV Lasix given, continue 40 IV daily
-Nitroglycerin drip started
-Bladder scan protocol
-Cardiology consulted
-Leukocytosis seems to be reactive
History of CAD
-Continue aspirin, statin
-Continue Coreg
Seizure disorder
-Continue Keppra
Essential hypertension
-Continue valsartan
Hyperlipidemia
-Continue statin
Alcohol use disorder
-Patient reportedly drinks significantly less than in the past
-Monitor for alcohol withdrawal
Active smoker
Full code
DVT prophylaxis�heparin
Cardiac diet
[2024-04-10 23:44] LABS: B.E. 7.4 mmol/L; HCO3 31.2 mmol/L (21-28); O2 Saturation % 98.9 % (94-98); PCO2 40 mmHg (35-48); PO2 94 mmHg (83-108)
[2024-04-11] VITALS (47 sets, daily range): BP systolic 100–198; BP diastolic 59–130; BMI 23.0; BMI 22.9
[2024-04-11 00:03] LABS: O2 Therapy %Oxygen/Room Air 80
--- NOTE | 2024-04-11 00:50 | PTCARENOTE ---
Pt arrived to floor on stretcher from ED. Pt on High flow @ 55L/100% O2 with NRB @ 100%. Able to remove NRB with keeping sat > 95%, will maintain NRB as PRN. Harsh moist cough. Rhonchi throughout with inspiratory wheeze noted. Nitro gtts
infusing into LAC @ 60mcg/min. BP = 137/81, began tapering drip keeping SBP < 160 as per order. Large bruises noted on b/l knees with scabs on R knee from recent fall. Pt reports pain in b/l feet - Tylenol provided. Pt current smoker, order
obtained for nicotine patch. Pt AAO x 3 but forgetful and repeats often. Oriented to room, call barreto within reach. Will continue to monitor and assess.
[2024-04-11] MEDS: TYLENOL 650 MG PO (02:02)
[2024-04-11 03:38] LABS: Urine Albumin Negative (Neg - Trace); Urine Bilirubin Negative (Negative); Urine Character Clear (Clear); Urine Color Yellow; Urine Glucose Negative (Negative); Urine Ketone Negative (Negative); Urine Leukocyte Negative (Negative); Urine Nitrite Negative (Negative); Urine Occult Blood 2+ (Negative); Urine Urobilinogen Negative (Neg - 1+)
[2024-04-11 03:52] LABS: Amphetamines Negative (Negative); Barbiturates Negative (Negative); Benzodiazepines Negative (Negative); Buprenorphine Negative (Negative); Cocaine Negative (Negative); Marijuana Negative (Negative); Methadone Negative (Negative); Methamphetamines Negative (Negative); Opiates Negative (Negative); Phencyclidine Negative (Negative); Tricyclic Antidepressants Negative (Negative)
[2024-04-11 04:00] LABS: Urine Bacteria Few (Negative)
[2024-04-11 04:18] LABS: INR 1.28; PT 16.6 Sec (11.4-14.6)
[2024-04-11 04:19] LABS: APTT 31.3 Sec (23.4-35.0)
[2024-04-11 04:22] LABS: GGTP 37 U/L (15-73); Magnesium 1.7 mg/dl (1.6-2.3); Phosphorus 5.2 mg/dl (2.5-4.5)
[2024-04-11 04:23] LABS: ALT (SGPT) 24 U/L (0-50); AST (SGOT) 25 U/L (17-59); Albumin 3.4 g/dl (3.5-5.0); Alkaline Phosphatase 78 U/L (38-126); Blood Urea Nitrogen 29 mg/dl (9-20); Calcium 8.4 mg/dl (8.4-10.2); Carbon Dioxide 38 mmol/L (22-30); Chloride 97 mmol/L (98-107); Estimated Creatinine Clearance 99 ml/min; Glucose 113 mg/dl (70-99); Sodium 140 mmol/L (135-145); Total Bilirubin 1.1 mg/dl (0.2-1.3); Total Protein 5.8 g/dl (6.3-8.2); eGFR > 60.00
[2024-04-11 04:26] LABS: Alcohol None Detected
[2024-04-11 04:28] LABS: B-Hydroxybutyrate 0.74 mmol/L (0.02-0.27)
[2024-04-11 04:36] LABS: % Basophils 0.2 % (0-2); % Immature Granulocytes 0.6 % (0-0.5); % Lymphocytes 4.8 % (20.5-51.1); % Monocytes 5.3 % (1.7-9.3); % Neutrophils 89.1 % (42.2-75.2); Absolute Immature Granulocytes 0.1 10^3/uL (0-0.05); Absolute Lymphocytes 0.6 10^3/uL (1.2-3.4); Absolute Monocytes 0.7 10^3/uL (0.1-0.6); Hematocrit 31.1 % (39.0-52.0); Hemoglobin 10.7 g/dL (13.0-18.0); Mean Corp Hgb Conc. 34.4 g/dL (33.0-37.0); Mean Corpuscular Hgb 35.9 pg (27.0-31.0); Mean Corpuscular Volume 104.4 fL (80.0-94.0); Mean Platelet Volume 10.1 fL (7.4-10.4); Nucleated Red Blood Cells % 0 % (-); Platelet Count 119 10^3/uL (130-400); Red Blood Cell Count 2.98 10^6/uL (4.70-6.10); Red Cell Dist. Width 14.5 % (11.5-14.5); White Blood Cell Count 12.4 10^3/uL (4.8-10.8)
[2024-04-11 05:06] LABS: Troponin I 0.075 ng/ml
--- NOTE | 2024-04-11 08:50 | CON.CAR ---
Addendum entered and electronically signed by Joshua Patel DO 04/11/24 14:31:
I saw and examined the patient.
The Property Maintenance Technician's note was reviewed and I agree with the note.
Comment:
GENERAL: no acute distress, nasal cannula in place
EYE: sclera anicteric
NECK: Supple, no JVD, no carotid bruit appreciated
ENT: normal nose, moist mucosal membranes
CARDIAC: Regular rate and rhythm, +S1/S2, no murmur, rubs, or gallops
CHEST/PULMONARY: Mild increased effort, bibasilar crackles, expiratory wheezing
ABDOMEN: Soft, without focal tenderness or distention
NEUROLOGICAL: Alert and oriented x3
SKIN: Warm and dry, no rash
PSYCH: Normal and appropriate interaction.
Telemetry sinus rhythm, PAT
A/P as below
Primary Sales Planner: last seen by Dr. Garduno in 2017
Assessment:
-Presentation with SOB, LE edema
Acute CHF, unknown type
HTN emergency
Acute hypoxic respiratory failure, currently on high flow O2, multifactorial; likely HF and COPD
Elevated troponin
Leukocytosis
CAD with PR status post LAD and circumflex stents in 2003
Chronic RBBB
Hypertension
Hyperlipidemia
Seizure disorder
History of pancreatitis
Chronic alcohol abuse
Ongoing tobacco use with suspected COPD
ECHO 07/2016: EF 60 to 65%, trace MR, aortic sclerosis, normal right heart
Plan:
-Patient presents with shortness of breath and lower extremity edema. With evidence of acute CHF as well as hypertensive emergency on arrival
-Currently on high flow O2, wean as able
-Continue IV Lasix, was not on diuretic prior to admission. Creatinine stable at 0.7
-CHF education
-Last echo from 2016 with results as above, will repeat today -- PENDING
-Blood pressures were significantly elevated on arrival, now improving. Remains on IV nitro at 10, will attempt to wean off as able. Continue outpatient Coreg 25 mg twice daily. Will increase Diovan to 160 mg daily and follow
-Troponin 0.065 -> 0.075 - > 0.073 Reports some chest tightness associated with his breathing, improved. Will require eventual ischemic evaluation. Continue aspirin, high intensity lipid-lowering therapy. May consider addition of IV heparin if
remains with chest discomfort
-Discussed alcohol and tobacco cessation
-monitor for withdrawal
-suspect he may have degree of underlying COPD in addition. should follow up with pulm as OP
-Discussed with nursing
Original Note:
Consultation
Consultation Request
Date/Time Consultation Performed: 04/11/24
Requesting Provider: Dr. Werner
Performing Provider: Isis Mcdonough PA-C for Dr. Patel
Reason for Consultation: CHF
Medical History
-
Chief Complaint: SOB, LE edema
History of Present Illness:
Patient is a 73 yo M with PMH of CAD s/p LAD and circumflex stents in 2003 in the setting of PR, hypertension, hyperlipidemia, seizure disorder, history of pancreatitis, chronic alcohol abuse, ongoing tobacco use who presented to [facility]
with several days of worsening shortness of breath and lower extremity edema. Denies fevers or chills. Reports he does have some chest tightness or pressure associated with his shortness of breath. proBNP 1500. Chest x-ray with evidence of
interstitial pulmonary edema and minimal right pleural effusion. Cardiology consulted for evaluation of CHF. Currently on high flow O2. Was also noted to have significantly elevated blood pressures on admission and started on IV nitro.
PMH:
CAD with PR status post LAD and circumflex stents in 2003
Chronic RBBB
Hypertension
Hyperlipidemia
Seizure disorder
History of pancreatitis
Chronic alcohol abuse
Ongoing tobacco use
Past Medical History
Past Medical History: Other (in HPI)
Social History
Tobacco: Smoker
Alcohol: Chronic Alcoholic
Employment: Retired
Family History
Family History: Hypertension
Allergies / Home Medications
Allergy/AdvReac Type Severity Reaction Status Date / Time
No Known Allergies Allergy Verified 01/19/24 04:17
�Medication �Instructions �Recorded �Confirmed �Type
aspirin 81 mg chewable tablet 81 mg PO DAILY 10/26/17 04/10/24 History
carvedilol 25 mg tablet (Coreg) 25 mg PO BID 10/26/17 04/10/24 History
levetiracetam 500 mg tablet 500 mg PO BID 10/26/17 04/10/24 History
atorvastatin 80 mg tablet 80 mg PO DAILY 01/19/24 04/10/24 History
valsartan 80 mg tablet 80 mg PO DAILY 01/19/24 04/10/24 History
cyanocobalamin (vitamin B-12) 1,000 mcg PO DAILY 04/10/24 04/10/24 History
1,000 mcg tablet
Review of Systems
-
History Source: Patient and Family
All other systems: Negative unless noted
Physical Exam
Vital Signs
Temp Pulse Resp BP Pulse Ox
98.5 F 72 25 147/94 100
04/11/24 07:26 04/11/24 07:30 04/11/24 07:30 04/11/24 07:30 04/11/24 07:26
Lab Results
04/11/24 04:23
04/11/24 03:45
Troponin I 0.075 ng/ml H* D 04/11/24 03:45
Nvl-P-Rrqycztysie Pept 1500 pg/ml 04/10/24 21:25
Physical Exam
General: No Apparent Distress, Comfortable and Other (on high flow O2)
HEENT: Normocephalic, Anicteric and Moist Mucous Membranes
Respiratory: Crackles
Cardiac: S1/S2 and Regular Rhythm
GI: Soft, Non Tender, Non Distended and Normal Bowel Sounds
Musculoskeletal: No Clubbing, No Cyanosis and Edema (trace of B/L LE)
Skin: Warm and Dry
Neuro: AO x 3
Impression / Plan
-
Primary Sales Planner: last seen by Dr. 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
Assessment:
-Presentation with SOB, LE edema
Acute CHF, unknown type
HTN emergency
Acute hypoxic respiratory failure, currently on high flow O2
Elevated troponin
Leukocytosis
CAD with PR status post LAD and circumflex stents in 2003
Chronic RBBB
Hypertension
Hyperlipidemia
Seizure disorder
History of pancreatitis
Chronic alcohol abuse
Ongoing tobacco use with suspected COPD
ECHO 07/2016: EF 60 to 65%, trace MR, aortic sclerosis, normal right heart
Plan:
-Patient presents with shortness of breath and lower extremity edema. With evidence of acute CHF as well as hypertensive emergency on arrival
-Currently on high flow O2, wean as able
-Continue IV Lasix, was not on diuretic prior to admission. Creatinine stable at 0.7
-CHF education
-Last echo from 2016 with results as above, will repeat today
-Blood pressures were significantly elevated on arrival, now improving. Remains on IV nitro at 10, will attempt to wean off as able. Continue outpatient Coreg 25 mg twice daily. Will increase Diovan to 160 mg daily and follow
-Troponin 0.065, trend to peak. Reports some chest tightness associated with his breathing. Will require eventual ischemic evaluation. Continue aspirin, high intensity lipid-lowering therapy. May consider addition of IV heparin if remains with
chest discomfort
-Discussed alcohol and tobacco cessation
-monitor for withdrawal
-suspect he may have degree of underlying COPD in addition. should follow up with pulm as OP
-Discussed with nursing
-Discussed with family at bedside
Data Reviewed
-
EKG: Tracing Personally Visualized and interpreted
Radiology: Report Reviewed by me
Medical Tests (Nuc Med, Echo etc): Report Reviewed by me
Labs: Labs Reviewed by me
Old Records: Reviewed
[2024-04-11] MEDS: THIAMINE INJECTION 200 MG IV ×2 (09:08→19:37)
[2024-04-11] MEDS: LASIX 40 MG IV (09:08)
[2024-04-11] MEDS: LIPITOR 80 MG PO (09:09)
[2024-04-11] MEDS: COREG 25 MG PO ×2 (09:09→19:36)
[2024-04-11] MEDS: HEPARIN 5000 UNITS SC ×2 (09:09→19:37)
[2024-04-11] MEDS: DIOVAN 80 MG PO (09:09)
[2024-04-11] MEDS: KEPPRA 500 MG PO ×2 (09:10→19:36)
[2024-04-11] MEDS: LOW STRENGTH ASPIRIN 81 MG PO (09:10)
[2024-04-11] MEDS: VITAMIN B-12 1000 MCG PO (09:10)
[2024-04-11] MEDS: NICODERM TRANSDERMAL 14 MG TRANSDERM (09:10)
[2024-04-11] MEDS: FOLVITE 1 MG PO (09:11)
[2024-04-11 10:23] LABS: Troponin I 0.073 ng/ml
--- NOTE | 2024-04-11 12:13 | W.PN.HOSP.TC ---
Today's Communication/Plan
-
Wean nitroglycerin gtt
Uptitrate antihypertensive regimen
IV diuretics
Check echo
Wean oxygen as able
Assessment / Plan
Assessment / Plan
#Acute hypoxemic and hypercapnic respiratory failure
#Flash pulmonary edema/hypertensive emergency
#Chronic hypertension
-Presented with acute respiratory distress from flash pulmonary edema due to HTN
-Blood pressure in the ED up to 233/127 mmHg, CXR showed pulmonary edema, elevated BNP
-Was started on nitroglycerin drip as well as IV diuretics with improvement to BP and respiratory status
-Initially required BiPAP which has since been titrated down to high flow nasal cannula
-Suspect CO2 retention related to undiagnosed COPD w/o flare v. Respiratory fatigue
-As of this morning was on 50 L high flow NC and comfortable
Plan
-Order echocardiogram to assess LVEF/diastology, valves, pulmonary pressures
-Continue with IV Lasix 40 mg daily; monitor I's/O's + weights + BMP
-Wean off nitroglycerin drip as blood pressure allows, SBP goal <140
-Consider increasing valsartan to 160 mg v. starting amlodipine 5 mg
-Wean supplemental oxygen for SpO2 goal >90%
#Elevated troponin
#H/O CAD s/p LAD and LCx PCI (2006)
#Chronic dyslipidemia
-History of ASCVD with multiple coronary stents placed
-Home medication regimen includes beta-roderick, ARB, ASA, high intensity statin
-Had some chest pain; Trop trend 0.029 - 0.075 - 0.073; no ischemic ECG
-Low suspicion for ACS; likely nonischemic myocardial injury from hypoxemia and HTN
-Would likely benefit from OP stress echo versus LHC to reassess coronaries
#Leukocytosis
-WBC count here 12.8�12.4; has not had any fevers or other infectious findings
-Suspect that this is reactive with his hypertensive crisis and hypoxemic events
-Not currently receiving any antibiotics; UA unremarkable
-Trend CBC and temperature curve for now
#Macrocytic anemia
-Hemoglobin down trended after arrival from 12.3-10.7
-Has not noted any signs of active bleeding; LFTs normal, no signs of hemolysis
-Will order iron studies, B12, folate level to assess for deficiency
-Trend CBC while here and monitor for signs of bleeding
-May need OP follow-up with hematology for consideration of bone marrow bx
#Seizure disorder
-Unclear etiology, question if this is related to his alcohol use disorder
-Home regimen includes Keppra 500 mg twice daily
-No signs of seizure activity since admission here
#Alcohol use disorder
-Currently with 2-3 drinks daily; states last drink was 3 to 4 days ago
-States that he drinks much less now than previously
-Monitor CIWA for signs of alcohol withdrawal
-Replete folate and thiamine while here and as OP
#Active tobacco user
-States he currently smokes 1 pack of cigarettes a week
-With hypercapnia on arrival there is concern he has underlying COPD
-Will need OP follow-up with pulm for PFTs and 6 MWT
-Consider discharge with inhalers as needed
-Encourage absolute smoking cessation
DVT prophylaxis: Subcu heparin
Diet: Cholesterol-lowering
CODE STATUS: Full code
Anticipated Discharge: > 48 hours
Subjective/Interval History
-
Date of Service: April 11, 2024
Seen and examined at the bedside. No acute events since admission. AFVSS on 50 L via high flow nasal cannula
Family at bedside and updated. Patient states his breathing is improved. Troponin downtrending
He denies any new complaints as of this morning.
Objective Data
-
Labs:
Laboratory Results
04/11/24 04/11/24
03:45 04:23
WBC 12.4 H
Hgb 10.7 L
Hct 31.1 L
Plt Count 119 L
PT 16.6 H
INR 1.28
APTT 31.3
Sodium 140
Potassium 4.0
Chloride 97 L
Carbon Dioxide 38 H
BUN 29 H
Creatinine 0.7
Glucose 113 H
Calcium 8.4
Total Bilirubin 1.1
AST 25
ALT 24
Alkaline Phosphatase 78
Vital Signs:
Vital Signs
Temp Pulse Resp BP Pulse Ox
98.7 F 60 26 109/74 97
04/11/24 11:25 04/11/24 12:00 04/11/24 12:00 04/11/24 12:00 04/11/24 12:00
I&O
04/10/24 04/11/24 04/12/24
06:59 06:59 06:59
Intake Total 360 / 360
Output Total 450 / 450 1825 / 1825
Balance -450 / -450 -1465 / -1465
Review of Systems
-
History Source: Patient
All other systems: Reviewed and negative
Physical Exam
-
General: Well Developed, Well Nourished and No Apparent Distress
HEENT: Normocephalic, Atraumatic, Moist Mucous Membranes and Oxygen
Respiratory: Clear to Auscultation, Non Labored Respirations and Accessory Resp Muscle Use; Negative Wheezes, Rales or Rhonchi
Cardiac: Regular Rhythm and S1/S2; Negative Murmur, Rub, JVD or Gallop
GI: Soft, Nontender, Nondistended and Normal Bowel Sounds
Musculoskeletal: No Clubbing, No Cyanosis and No Edema
Skin: Warm, Dry and Normal Turgor; Negative Rash
Neuro: AO x 3 and Nonfocal/Grossly Intact
Psych: Calm
Data Reviewed
-
Labs: Labs Reviewed by me, Discussed with Patient and Discussed with Family
--- NOTE | 2024-04-11 12:17 | PTCARENOTE ---
Addendum entered by Nancy Romero RN 04/11/24 12:28:
Received patient with Nitro infusing at 10mcg/min to maintain SBP <160. Infusion able to be weaned to off. Current BP 109/74.
Original Note:
Assumed care of patient at beginning of this shift from previous RN with high flow in use. RT weaned O2 this morning; currently 12L midflow with POx 97%. 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 Bed alarm in use
for patient safety. MSAS score =1 for occasional restlessness. Ox3 but forgetful. Family was at bedside this morning when hospitalist rounded. See worklist for full assessment.
--- NOTE | 2024-04-11 13:33 | PTCARENOTE ---
Patient c/o chest pain at approximately 08:22; could not give a number to rate, stated it was 'just there, not sharp' but improved from admission. He pointed to his epigastric area for the pain. Both Isis Mcdonough and Dr Ho were notified via TT.
EKG done as per protocol; pain resolved before EKG was completed.
--- NOTE | 2024-04-11 15:18 | PTCARENOTE ---
Patient had burst of ST to 120s, lasting approximately 6 seconds; asymptomatic. HR then returned to the 60s, BP 145/80. No further c/o CP. TT sent to both Isis Mcdonough and Dr Ho with picture of telemetry strip attached.
[2024-04-11 16:39] LABS: Troponin I 0.058 ng/ml
--- NOTE | 2024-04-11 16:58 | CM ---
Patient with Hx Etoh Use Disorder with Dx Flash pulmonary edema/hypertensive emergency. Per nurse O2 decreased from 40L to 12L midflow. MSAS.
Met with patient who resides with his in a 2 story house with first floor bedroom/bath.
The patient was independent in ADLs and ambulation.
He states he has difficulty doing stairs.
DME - [facility]W
Prior VN can't remember agency
Prior [facility]
PCP - Eliu Leone
Pharmcy - Carmela Florence
CM COnsult: Substance Abuse
Offered [facility] for Etoh programs or resources and patient declined.
Plan follow patient's mobility and possible O2 needs at d/c.
Plan home.
--- NOTE | 2024-04-11 19:42 | PTCARENOTE ---
Pt AAOx3, but forgetful, odd affect. Pt very concerned about his medications, frequently asking this RN if he is still getting his medications and what medications have been changed from his home meds. This RN educated pt to best of ability, ensured
pt he will receive med list prior to discharge. Pt asking this RN if he will go home tomorrow morning. This RN educated pt that he is still requiring 12L O2 and therefore will likely continue to receive care tomorrow. VSS at this time, slightly
bradycardic HR 50s. Will continue to wean O2 as tolerated. CC#[address] for incontinence[address] Call barreto within reach, bed alarm in place for pt safety. Care ongoing.
[2024-04-11] MEDS: MELATONIN 5 MG PO (20:53)
[2024-04-12] VITALS (21 sets, daily range): BP systolic 100–161; BP diastolic 65–102; BMI 22.9; BMI 22.6
--- NOTE | 2024-04-12 02:02 | PTCARENOTE ---
Pt with several episodes of becoming confused, setting off bed alarm, removing O2 throughout night. Desat to 80s on RA, improved with replacement of O2. Pt denies confusion, but is asking this RN questions that indicate he is unsure of place and
situation. Reorientation provided.
[2024-04-12 04:25] LABS: % Basophils 0.3 % (0-2); % Eosinophils 0.9 % (0-6); % Immature Granulocytes 0.3 % (0-0.5); % Lymphocytes 12.5 % (20.5-51.1); % Monocytes 5.7 % (1.7-9.3); % Neutrophils 80.3 % (42.2-75.2); Absolute Eosinophils 0.1 10^3/uL (0-0.7); Absolute Lymphocytes 1.1 10^3/uL (1.2-3.4); Absolute Monocytes 0.5 10^3/uL (0.1-0.6); Absolute Neutrophils 7.2 10^3/uL (1.4-6.5); Hematocrit 32.4 % (39.0-52.0); Hemoglobin 11.2 g/dL (13.0-18.0); Mean Corp Hgb Conc. 34.6 g/dL (33.0-37.0); Mean Corpuscular Volume 104.2 fL (80.0-94.0); Mean Platelet Volume 12.2 fL (7.4-10.4); Nucleated Red Blood Cells % 0 % (-); Platelet Count 170 10^3/uL (130-400); Red Blood Cell Count 3.11 10^6/uL (4.70-6.10); Red Cell Dist. Width 14.6 % (11.5-14.5)
[2024-04-12 05:43] LABS: ALT (SGPT) 21 U/L (0-50); AST (SGOT) 29 U/L (17-59); Albumin 3.2 g/dl (3.5-5.0); Alkaline Phosphatase 72 U/L (38-126); Direct Bilirubin 0.2 mg/dl (0.0-0.4); Total Bilirubin 1.2 mg/dl (0.2-1.3); Total Protein 5.7 g/dl (6.3-8.2)
[2024-04-12] MEDS: ATIVAN 1 MG PO (07:41)
[2024-04-12] MEDS: FOLVITE 1 MG PO (07:43)
[2024-04-12] MEDS: KEPPRA 500 MG PO ×2 (07:43→20:21)
[2024-04-12] MEDS: VITAMIN B-12 1000 MCG PO (07:43)
[2024-04-12] MEDS: LOW STRENGTH ASPIRIN 81 MG PO (07:43)
[2024-04-12] MEDS: COREG 25 MG PO ×2 (07:44→20:22)
[2024-04-12] MEDS: LIPITOR 80 MG PO (07:44)
[2024-04-12] MEDS: DIOVAN 80 MG PO ×2 (07:44→09:01)
[2024-04-12] MEDS: NICODERM TRANSDERMAL 14 MG TRANSDERM (07:45)
[2024-04-12] MEDS: LASIX 40 MG IV ×2 (07:47→15:54)
[2024-04-12] MEDS: HEPARIN 5000 UNITS SC ×2 (07:52→20:21)
[2024-04-12] MEDS: THIAMINE INJECTION 200 MG IV ×2 (07:52→20:21)
[2024-04-12] MEDS: DUONEB 3 ML INH (08:09)
[2024-04-12 08:19] LABS: Blood Urea Nitrogen 29 mg/dl (9-20); Calcium 8.4 mg/dl (8.4-10.2); Carbon Dioxide 39 mmol/L (22-30); Chloride 95 mmol/L (98-107); Estimated Creatinine Clearance 114 ml/min; Glucose 102 mg/dl (70-99); Potassium 3.3 mmol/L (3.5-5.1); Sodium 135 mmol/L (135-145); eGFR > 60.00
[2024-04-12] MEDS: DELTASONE 40 MG PO (09:01)
[2024-04-12] MEDS: KCL 270 MEQ IV ×2 (09:06→13:18)
[2024-04-12 09:19] LABS: B.E. 17.9 mmol/L; O2 Saturation % 93.9 % (94-98); PCO2 46 mmHg (35-48); PO2 63 mmHg (83-108); pH 7.57 (7.35-7.45)
[2024-04-12 09:25] LABS: HCO3 42.1 mmol/L (21-28)
--- NOTE | 2024-04-12 10:13 | PTCARENOTE ---
Patient pulse ox dropped into the 80s while eating breakfast this morning. Notified Dr. Ho immediately. Chest xray and abg completed. Speech therapy consulted, breakfast tray removed from room. NPO until further notice.
--- NOTE | 2024-04-12 10:15 | PTCARENOTE ---
Patient restless at the start of the shift, although he was able to answer the date, location and his name properly he was climbing out of bed, removing oxygen and medical equipment. Hands tremoring. MSAS was 5 and oral dose of Ativan administered.
--- NOTE | 2024-04-12 10:48 | W.PN.HOSP.TC ---
Today's Communication/Plan
-
Continue IV diuresis
Uptitrate antihypertensive regimen
Speech evaluation
Monitor mental status
Alcohol withdrawal protocol
Assessment / Plan
Assessment / Plan
#Acute hypoxemic and hypercapnic respiratory failure
#Flash pulmonary edema/hypertensive emergency
#Chronic hypertension
-Presented with acute respiratory distress from flash pulmonary edema due to HTN
-Blood pressure in the ED up to 233/127 mmHg, CXR showed pulmonary edema, elevated BNP
-Status post nitroglycerin drip; valsartan dose was increased to 160 mg on 04/12
-Initially required BiPAP which has since been titrated down to high flow nasal cannula
-Initially had CO2 retention, possibly with respiratory fatigue; ABG 04/12 without hypercapnia
-Echocardiogram with preserved LVEF, no other clinically significant findings
-Currently on 10 L O2, x-ray improving; made n.p.o. until speech eval
Plan
-Continue with IV Lasix 40 mg daily; monitor I's/O's + weights + BMP
-Continue antihypertensive regimen, consider adding amlodipine 5 mg
-Continue with bronchodilators; defer against steroid
-NPO pending speech evaluation
-Wean supplemental oxygen for SpO2 goal >90%
#Acute metabolic encephalopathy
-Likely multifactorial with alcohol withdrawal, hypoxemia/hypercapnia, high stimulation environment
-He is awake and alert though does seem confused at times and asks odd questions
-Anticipate that this will improve with oxygen weaning and diuresis
-Most recent ABG on 04/12 without hypercapnia
-Monitor MSE
#Elevated troponin
#H/O CAD s/p LAD and LCx PCI (2006)
#Chronic dyslipidemia
-History of ASCVD with multiple coronary stents placed
-Home medication regimen includes beta-roderick, ARB, ASA, high intensity statin
-Had some chest pain; Trop trend 0.029 - 0.075 - 0.073; no ischemic ECG
-Low suspicion for ACS; likely nonischemic myocardial injury from hypoxemia and HTN
-Would likely benefit from OP stress echo versus LHC to reassess coronaries
#Leukocytosis
-WBC count here 12.8�12.4; has not had any fevers or other infectious findings
-Suspect that this is reactive with his hypertensive crisis and hypoxemic events
-Resolved without antibiotics
#Macrocytic anemia
-Hemoglobin down trended after arrival from 12.3-10.7
-Has not noted any signs of active bleeding; LFTs normal, no signs of hemolysis
-Will order iron studies, B12, folate level to assess for deficiency
-Trend CBC while here and monitor for signs of bleeding
-May need OP follow-up with hematology for consideration of bone marrow bx
#Seizure disorder
-Unclear etiology, question if this is related to his alcohol use disorder
-Home regimen includes Keppra 500 mg twice daily
-No signs of seizure activity since admission here
#Alcohol use disorder
-Currently with 2-3 drinks daily; states last drink was 3 to 4 days ago
-States that he drinks much less now than previously
-Monitor CIWA for signs of alcohol withdrawal
-Replete folate and thiamine while here and as OP
#Active tobacco user
-States he currently smokes 1 pack of cigarettes a week
-With hypercapnia on arrival there is concern he has underlying COPD
-Will need OP follow-up with pulm for PFTs and 6 MWT
-Consider discharge with inhalers as needed
-Encourage absolute smoking cessation
DVT prophylaxis: Subcu heparin
Diet: Cholesterol-lowering
CODE STATUS: Full code
Anticipated Discharge: > 48 hours
Subjective/Interval History
-
Date of Service: April 12, 2024
Seen and examined at the bedside. No acute events reported overnight. AFVSS initially on 4 L this morning
Was noted to have hypoxemia with SpO2 in the 80s on 4 L, ABG showing hypoxemia, chest x-ray improved. Placed on the 10 L with improved SpO2 goal
He otherwise denies any new complaints. Appears encephalopathic
Objective Data
-
Labs:
Laboratory Results
04/12/24 04/12/24 04/12/24
03:48 05:02 09:02
WBC 9.0
Hgb 11.2 L
Hct 32.4 L
Plt Count 170 D
HCO3 42.1 H*
Sodium 135
Potassium 3.3 L
Chloride 95 L
Carbon Dioxide 39 H
BUN 29 H
Creatinine 0.6 L
Glucose 102 H
Calcium 8.4
Total Bilirubin Cancelled 1.2
AST Cancelled 29
ALT Cancelled 21
Alkaline Phosphatase Cancelled 72
Vital Signs:
Vital Signs
Temp Pulse Resp BP Pulse Ox
98.2 F 68 22 103/67 96
04/12/24 07:30 04/12/24 10:02 04/12/24 10:02 04/12/24 10:02 04/12/24 10:00
I&O
04/11/24 04/12/24 04/13/24
06:59 06:59 06:59
Intake Total 360 / 360 100 / 100
Output Total 450 / 450 2500 / 2500 1100 / 1100
Balance -450 / -450 -2140 / -2140 -1000 / -1000
Review of Systems
-
History Source: Patient
All other systems: Reviewed and negative
Physical Exam
-
General: Well Developed, No Apparent Distress and Comfortable
HEENT: Normocephalic, Atraumatic, Moist Mucous Membranes, Anicteric and Oxygen
Respiratory: Rhonchi and Non Labored Respirations; Negative Wheezes, Rales, Crackles or Accessory Resp Muscle Use
Cardiac: Regular Rhythm, S1/S2 and Murmur; Negative Rub or Gallop
GI: Soft, Nontender, Nondistended and Normal Bowel Sounds
Musculoskeletal: No Clubbing, No Cyanosis and No Edema
Skin: Warm, Dry and Normal Turgor; Negative Rash
Neuro: Awake, Alert, Oriented and Nonfocal/Grossly Intact; Negative Tremors
Psych: Confused
Data Reviewed
-
Labs: Labs Reviewed by me, Discussed with Physician (Radiotelegraph Operator), Discussed with Nurse and Discussed with Patient
--- NOTE | 2024-04-12 11:06 | W.PN.CARDCBS ---
Today's Communication / Plan
-
Increase diuretic therapy Lasix 40 mg IV twice daily
Monitor intake and output, daily weight
Speech evaluation per primary service
Monitor for withdrawal
Eventual ischemic evaluation when euvolemic
Impression / Plan
-
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
Assessment:
-Presentation with SOB, LE edema
Acute CHF, unknown type
HTN emergency, improving
Acute hypoxic respiratory failure, currently on high flow O2
� Likely multifactorial in the setting of COPD, heart failure, possible infection
Elevated troponin
Leukocytosis
CAD with [place] status post LAD and circumflex stents in 2003
Chronic RBBB
Hypertension
Hyperlipidemia
Seizure disorder
History of pancreatitis
Chronic alcohol abuse
Ongoing tobacco use with suspected COPD
ECHO 07/2016: EF 60 to 65%, trace MR, aortic sclerosis, normal right heart
Echo 04/11/2024: Normal LV RV, EF 50%, trace MR, mild AI, mild TR PASP 35 mmHg, sinus of Valsalva 3.7 cm, ascending aorta 4.0 cm
Plan:
-Patient presents with shortness of breath and lower extremity edema. With evidence of acute CHF as well as hypertensive emergency on arrival
-Currently on high flow O2, wean as able
-Continue IV Lasix, was not on diuretic prior to admission; roughly 2 L output over last 24 hours; can increase to 40 mg IV twice daily. Creatinine stable at 0.6
-CHF education
-Blood pressures were significantly elevated on arrival, now improving, off nitroglycerin, continue outpatient Coreg 25 mg twice daily, on Diovan to 160 mg daily and follow
-Troponin peak 0.073, downtrending no further episodes of chest discomfort. Will require eventual ischemic evaluation when nearing euvolemia. Continue aspirin, high intensity lipid-lowering therapy. May consider addition of IV heparin if remains
with chest discomfort
-Discussed alcohol and tobacco cessation
-monitor for withdrawal
-suspect he may have degree of underlying COPD in addition. should follow up with pulm as OP
-Discussed with nursing, Dr. Ho
Progress Note - Transportation Maintenance Worker
Subjective
Date of Service: April 12, 2024
Patient seen and examined's morning. No acute events overnight. Patient resting comfortably eating breakfast. However, SpO2 noted to be 85 to 88% on nasal cannula. Per nursing, this had changed during eating. Hospitalist, nursing, respiratory
therapy at bedside during evaluation. Patient without complaint. No reported chest pain, shortness of breath, lightheadedness, palpitations, or weakness. With increasing nasal cannula, strong cough, SpO2 improved.
Objective
Labs:
04/12/24 03:48
04/12/24 05:02
Labs
Hgb 11.2 g/dL (13.0-18.0) L 04/12/24 03:48
Hct 32.4 % (39.0-52.0) L 04/12/24 03:48
Plt Count 170 10^3/uL (130-400) D 04/12/24 03:48
PT 16.6 Sec (11.4-14.6) H 04/11/24 03:45
INR 1.28 04/11/24 03:45
APTT 31.3 Sec (23.4-35.0) 04/11/24 03:45
Sodium 135 mmol/L (135-145) 04/12/24 05:02
Potassium 3.3 mmol/L (3.5-5.1) L 04/12/24 05:02
BUN 29 mg/dl (9-20) H 04/12/24 05:02
Creatinine 0.6 mg/dL (0.7-1.3) L 04/12/24 05:02
Glucose 102 mg/dl (70-99) H 04/12/24 05:02
Troponins
04/10/24 04/11/24 04/11/24
21: 03:45 09:45
Troponin I 0.029 0.075 H* D 0.073 H*
04/11/24
16:05
Troponin I 0.058 H*
Vital Signs and I&O:
Vital Signs
Temp Pulse Resp BP Pulse Ox
98.2 F 68 22 103/ 96
04/12/24 07:30 04/12/24 10:02 04/12/24 10:02 04/12/24 10:02 04/12/24 10:00
Vital Signs
Temp Pulse Resp BP Pulse Ox
98.2 F 68 22 103/ 96
04/12/24 07:30 04/12/24 10:02 04/12/24 10:02 04/12/24 10:02 04/12/24 10:00
Intake & Output
04/10/24 04/11/24 04/12/24 04/13/24
06:59 06:59 06:59 06:59
Intake Total 360 / 360 100 / 100
Output Total 450 / 450 2500 / 2500 1100 / 1100
Balance -450 / -450 -2140 / -2140 -1000 / -1000
Physical Exam
Physical Exam
GENERAL: no acute distress, nasal cannula in place
EYE: sclera anicteric
NECK: Supple, no JVD, no carotid bruit appreciated
ENT: normal nose, moist mucosal membranes
CARDIAC: Regular rate and rhythm, +S1/S2, no murmur, rubs, or gallops
CHEST/PULMONARY: Mild increased effort, bibasilar crackles, expiratory wheezing, rhonchi
ABDOMEN: Soft, without focal tenderness or distention
NEUROLOGICAL: Alert and oriented x3
SKIN: Warm and dry, no rash
PSYCH: Normal and appropriate interaction
--- NOTE | 2024-04-12 11:13 | PTOTSP ---
SPEECH THERAPY SWALLOW EVALUATION:
Patient exhibits clinical signs of oropharyngeal dysphagia, likely acutely related to AHRF 2/2 CHF as well as possible etoh withdrawal. CXR concerning for possible pneumonia at this time, though unclear per physician. Patient remains at risk for
aspiration and related complications given confusion and impulsivity. Recommend IDDSI Level 6 Soft and Bite size diet, thin liquids. Medications whole with liquid as tolerated. Aspiration precautions: 100% supervision with meals with close
monitoring of respiratory status; Partial assistance as needed; Ensure patient taking small bites/sips during meals; Oral care 3x/day; Only feed when SpO2>90%, RR<30; Small sips/bites; D/c oral diet if ANY decline in mental or respiratory status.
Consider VSE if any concern for aspiration. ST to follow, determine indication for VSE, and assess diet tolerance and modify as appropriate.
RECOMMEND:
1) IDDSI Level 6 Soft and Bite size diet, thin liquids
2) Medications whole with liquid as tolerated
3) Aspiration precautions: 100% supervision with meals with close monitoring of respiratory status; Partial assistance as needed; Ensure patient taking small bites/sips during meals; Oral care 3x/day; Only feed when SpO2>90%, RR<30; Small
sips/bites; D/c oral diet if ANY decline in mental or respiratory status
4) Consider VSE if any concern for aspiration
5) ST to follow
--- NOTE | 2024-04-12 13:45 | PTCARENOTE ---
Patient is on intake and output monitoring, receiving IV Lasix. Incontinent of bladder, change in mental status. Condom catheter was in place for output monitoring. Patient pulled off several condom catheters. Bruising observed around shaft. Condom
catheter removed due to risk of injury to skin.
--- NOTE | 2024-04-12 15:37 | PTCARENOTE ---
Patient was pulling off oxygen and medical equipment this morning, climbing out of bed. 1:[address] in [address] due to risk of injury to self.
[2024-04-12] MEDS: MELATONIN 5 MG PO (21:16)
[2024-04-13] VITALS (26 sets, daily range): BP systolic 74–143; BP diastolic 18–96; PULSE 52–55; O2SAT 93; BMI 22.5
[2024-04-13 04:18] LABS: % Basophils 0.2 % (0-2); % Eosinophils 0.1 % (0-6); % Immature Granulocytes 0.7 % (0-0.5); % Lymphocytes 8.8 % (20.5-51.1); % Neutrophils 83.2 % (42.2-75.2); Absolute Immature Granulocytes 0.1 10^3/uL (0-0.05); Absolute Lymphocytes 0.9 10^3/uL (1.2-3.4); Absolute Monocytes 0.7 10^3/uL (0.1-0.6); Absolute Neutrophils 8.1 10^3/uL (1.4-6.5); Hematocrit 32.2 % (39.0-52.0); Hemoglobin 11.1 g/dL (13.0-18.0); Mean Corp Hgb Conc. 34.5 g/dL (33.0-37.0); Mean Corpuscular Hgb 35.1 pg (27.0-31.0); Mean Corpuscular Volume 101.9 fL (80.0-94.0); Mean Platelet Volume 10.7 fL (7.4-10.4); Nucleated Red Blood Cells % 0 % (-); Platelet Count 126 10^3/uL (130-400); Red Blood Cell Count 3.16 10^6/uL (4.70-6.10); Red Cell Dist. Width 14.1 % (11.5-14.5); White Blood Cell Count 9.7 10^3/uL (4.8-10.8)
[2024-04-13 04:28] LABS: Blood Urea Nitrogen 31 mg/dl (9-20); Calcium 8.6 mg/dl (8.4-10.2); Carbon Dioxide 36 mmol/L (22-30); Chloride 94 mmol/L (98-107); Estimated Creatinine Clearance 114 ml/min; Glucose 112 mg/dl (70-99); Magnesium 1.9 mg/dl (1.6-2.3); Potassium 3.5 mmol/L (3.5-5.1); Sodium 135 mmol/L (135-145); eGFR > 60.00
[2024-04-13] MEDS: NICODERM TRANSDERMAL 14 MG TRANSDERM (08:13)
[2024-04-13] MEDS: LOW STRENGTH ASPIRIN 81 MG PO (08:14)
[2024-04-13] MEDS: KEPPRA 500 MG PO ×2 (08:14→19:28)
[2024-04-13] MEDS: DIOVAN 160 MG PO (08:14)
[2024-04-13] MEDS: LIPITOR 80 MG PO (08:14)
[2024-04-13] MEDS: COREG 25 MG PO (08:14)
[2024-04-13] MEDS: FOLVITE 1 MG PO (08:15)
[2024-04-13] MEDS: THIAMINE INJECTION 200 MG IV ×2 (08:15→19:29)
[2024-04-13] MEDS: HEPARIN 5000 UNITS SC ×2 (08:15→19:30)
[2024-04-13] MEDS: VITAMIN B-12 1000 MCG PO (08:15)
[2024-04-13] MEDS: LASIX 40 MG IV (08:16)
[2024-04-13] MEDS: KCL 40 MEQ PO (08:17)
--- NOTE | 2024-04-13 08:56 | W.PN.CARDCBS ---
Today's Communication / Plan
-
Continue IV diuresis, intake and output, daily weight
May have component of COPD playing additional role in shortness of breath/hypoxia
Wean O2 as tolerated, encourage patient to utilize supplemental O2
Impression / Plan
-
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
Assessment:
-Presentation with SOB, LE edema
Acute CHF, unknown type
HTN emergency, improving
Acute hypoxic respiratory failure, currently on high flow O2
� Likely multifactorial in the setting of COPD, heart failure, possible infection
Elevated troponin
Leukocytosis
CAD with [place] status post LAD and circumflex stents in 2003
Chronic RBBB
Hypertension
Hyperlipidemia
Seizure disorder
History of pancreatitis
Chronic alcohol abuse
Ongoing tobacco use with suspected COPD
ECHO 07/2016: EF 60 to 65%, trace MR, aortic sclerosis, normal right heart
Echo 04/11/2024: Normal LV RV, EF 50%, trace MR, mild AI, mild TR PASP 35 mmHg, sinus of Valsalva 3.7 cm, ascending aorta 4.0 cm
Plan:
-Patient presents with shortness of breath and lower extremity edema. With evidence of acute CHF as well as hypertensive emergency on arrival
-Currently on high flow O2, wean as able
-Continue IV Lasix, was not on diuretic prior to admission; roughly 2 L output over last 24 hours; increased to 40 mg IV twice daily. Creatinine stable at 0.6, and additional 2.4 L in last 24 hours of urine output
-CHF education
-Blood pressures were significantly elevated on arrival, now improving, off nitroglycerin, continue outpatient Coreg 25 mg twice daily, on Diovan to 160 mg daily and follow
-Troponin peak 0.073, downtrending no further episodes of chest discomfort. Will require eventual ischemic evaluation when nearing euvolemia. Continue aspirin, high intensity lipid-lowering therapy. May consider addition of IV heparin if remains
with chest discomfort
-Discussed alcohol and tobacco cessation
-monitor for withdrawal
-suspect he may have degree of underlying COPD in addition; has inspiratory expiratory wheezing on examination, likely to benefit from pulm evaluation
-Discussed with nursing
Progress Note - Talent Acquisition Consultant
Subjective
Date of Service: April 13, 2024
Patient seen and examined's morning. No acute events overnight. Patient resting comfortably in bed. Patient denies chest pain, shortness of breath, palpitations, weakness. Patient recommended nasal cannula however currently refusing this morning
and denying any shortness of breath or discomfort. SpO2 ranging 86-88%. Telemetry demonstrates sinus bradycardia/sinus rhythm.
Objective
Labs:
04/13/24 03:35
04/13/24 03:35
Labs
Hgb 11.1 g/dL (13.0-18.0) L 04/13/24 03:35
Hct 32.2 % (39.0-52.0) L 04/13/24 03:35
Plt Count 126 10^3/uL (130-400) L D 04/13/24 03:35
PT 16.6 Sec (11.4-14.6) H 04/11/24 03:45
INR 1.28 04/11/24 03:45
APTT 31.3 Sec (23.4-35.0) 04/11/24 03:45
Sodium 135 mmol/L (135-145) 04/13/24 03:35
Potassium 3.5 mmol/L (3.5-5.1) 04/13/24 03:35
BUN 31 mg/dl (9-20) H 04/13/24 03:35
Creatinine 0.6 mg/dL (0.7-1.3) L 04/13/24 03:35
Glucose 112 mg/dl (70-99) H 04/13/24 03:35
Troponins
04/10/24 04/11/24 04/11/24
21:25 03:45 09:45
Troponin I 0.029 0.075 H* D 0.073 H*
04/11/24
16:05
Troponin I 0.058 H*
Vital Signs and I&O:
Vital Signs
Temp Pulse Resp BP Pulse Ox
97.8 F 55 25 115/74 89
04/13/24 02:37 04/13/24 08:16 04/13/24 08:00 04/13/24 08:16 04/13/24 07:00
Vital Signs
Temp Pulse Resp BP Pulse Ox
97.8 F 55 25 115/74 89
04/13/24 02:37 04/13/24 08:16 04/13/24 08:00 04/13/24 08:16 04/13/24 07:00
Intake & Output
04/11/24 04/12/24 04/13/24 04/14/24
06:59 06:59 06:59 06:59
Intake Total 360 / 360 220 / 220
Output Total 450 / 450 2500 / 2500 2625 / 2625
Balance -450 / -450 -2140 / -2140 -2405 / -2405
Physical Exam
Physical Exam
GENERAL: no acute distress, nasal cannula in place
EYE: sclera anicteric
NECK: Supple, no JVD, no carotid bruit appreciated
ENT: normal nose, moist mucosal membranes
CARDIAC: Regular rate and rhythm, +S1/S2, no murmur, rubs, or gallops
CHEST/PULMONARY: Mild increased effort, bibasilar crackles, inspiratory/expiratory wheezing, rhonchi
ABDOMEN: Soft, without focal tenderness or distention
NEUROLOGICAL: Alert and oriented x3
SKIN: Warm and dry, no rash
PSYCH: Normal and appropriate interaction
--- NOTE | 2024-04-13 09:06 | PTCARENOTE ---
pt drowsy at 0700 and forgetful of time and events , he is now awake and conversant , aware he is in hospital , he is refusing to wear 02 , his sats ar e88% on room air , he looks comfortable and in no distress ,he has a loose produtcitve cough ,
lungs are diminished and expiratory wheezing , he admits to smoking 2-4 cigarettes daily NSR -SB on monitor , BP 125/82, hes voiding frequenly in small amounts , he had a post void residual volume of 250 , he requested to utilize the condom cath
again , his penile wounds are absent , condom cath place and is effective for urine incontinence
[2024-04-13] MEDS: DUONEB 3 ML INH ×2 (10:05→17:02)
--- NOTE | 2024-04-13 11:08 | W.PN.HOSP.TC ---
Today's Communication/Plan
-
Continue IV diuretics
Continue antihypertensive regimen
As needed bronchodilator
Monitor on room air for now
SpO2 goal 88 to 94%
Assessment / Plan
Assessment / Plan
#Acute hypoxemic and hypercapnic respiratory failure
#Flash pulmonary edema/hypertensive emergency
#Chronic hypertension
-Presented with acute respiratory distress from flash pulmonary edema due to HTN
-Blood pressure in the ED up to 233/127 mmHg, CXR showed pulmonary edema, elevated BNP
-Status post nitroglycerin drip; valsartan dose was increased to 160 mg on 04/12
-Initially required BiPAP which has since been titrated down to high flow nasal cannula
-Initially had CO2 retention, possibly with respiratory fatigue; ABG 04/12 without hypercapnia
-Echocardiogram with preserved LVEF, no other clinically significant findings
-Currently on 10 L O2, x-ray improving; made n.p.o. until speech eval
Plan
-Continue with IV Lasix 40 mg daily; monitor I's/O's + weights + BMP
-Continue antihypertensive regimen with BP goal <140/90
-Continue with bronchodilators; defer against steroid as low suspicion for COPD flare
-Continue with modified diet and aspiration precautions
-SpO2 goal 88 to 94% with likely underlying COPD
#Acute metabolic encephalopathy
-Likely multifactorial with alcohol withdrawal, hypoxemia/hypercapnia, high stimulation environment
-He is awake and alert though does seem confused at times and asks odd questions
-Anticipate that this will improve with oxygen weaning and diuresis
-Most recent ABG on 04/12 without hypercapnia
-Monitor MSE, improving as of 04/13
#Elevated troponin
#H/O CAD s/p LAD and LCx PCI (2006)
#Chronic dyslipidemia
-History of ASCVD with multiple coronary stents placed
-Home medication regimen includes beta-roderick, ARB, ASA, high intensity statin
-Had some chest pain; Trop trend 0.029 - 0.075 - 0.073; no ischemic ECG
-Low suspicion for ACS; likely nonischemic myocardial injury from hypoxemia and HTN
-Would likely benefit from OP stress echo versus LHC to reassess coronaries
#Leukocytosis
-WBC count here 12.8�12.4; has not had any fevers or other infectious findings
-Suspect that this is reactive with his hypertensive crisis and hypoxemic events
-Resolved without antibiotics
#Macrocytic anemia
-Hemoglobin down trended after arrival from 12.3-10.7
-Has not noted any signs of active bleeding; LFTs normal, no signs of hemolysis
-Will order iron studies, B12, folate level to assess for deficiency
-Trend CBC while here and monitor for signs of bleeding
-May need OP follow-up with hematology for consideration of bone marrow bx
#Seizure disorder
-Unclear etiology, question if this is related to his alcohol use disorder
-Home regimen includes Keppra 500 mg twice daily
-No signs of seizure activity since admission here
#Alcohol use disorder
-Currently with 2-3 drinks daily; states last drink was 3 to 4 days ago
-States that he drinks much less now than previously
-Monitor CIWA/MSAS for signs of alcohol withdrawal
-Replete folate and thiamine
#Active tobacco user
-States he currently smokes 1 pack of cigarettes a week
-With hypercapnia on arrival there is concern he has underlying COPD
-Will need OP follow-up with pulm for PFTs and 6 MWT
-Consider discharge with inhalers as needed
-Encourage absolute smoking cessation
DVT prophylaxis: Subcu heparin
Diet: Cholesterol-lowering
CODE STATUS: Full code
Anticipated Discharge: 24 - 48 hours
Subjective/Interval History
-
Date of Service: April 13, 2024
Seen and examined at the bedside. No acute events reported overnight. AFVSS with SpO2 88% on room air
He complains of a bit of a cough, nonproductive. Mental status improved, remains on one-to-one for now
Denies any new complaints. Asks when he will be able to leave
Objective Data
-
Labs:
Laboratory Results
04/13/24
03:35
WBC 9.7
Hgb 11.1 L
Hct 32.2 L
Plt Count 126 L D
Sodium 135
Potassium 3.5
Chloride 94 L
Carbon Dioxide 36 H
BUN 31 H
Creatinine 0.6 L
Glucose 112 H
Calcium 8.6
Vital Signs:
Vital Signs
Temp Pulse Resp BP Pulse Ox
97.1 F 55 24 115/74 88
04/13/24 08:39 04/13/24 10:08 04/13/24 10:08 04/13/24 08:39 04/13/24 10:08
I&O
04/12/24 04/13/24 04/14/24
06:59 06:59 06:59
Intake Total 360 / 360 220 / 220
Output Total 2500 / 2500 2625 / 2625 800 / 800
Balance -2140 / -2140 -2405 / -2405 -800 / -800
Review of Systems
-
History Source: Patient
All other systems: Reviewed and negative
Physical Exam
-
General: Well Developed, No Apparent Distress and Other (Thin male)
HEENT: Normocephalic, Atraumatic, Moist Mucous Membranes and Anicteric
Respiratory: Rhonchi, Non Labored Respirations and Decreased Breath Sounds; Negative Wheezes, Rales or Accessory Resp Muscle Use
Cardiac: Regular Rhythm and S1/S2; Negative Murmur, Rub, JVD or Gallop
GI: Soft, Nontender, Nondistended and Normal Bowel Sounds
Musculoskeletal: No Clubbing, No Cyanosis and No Edema
Skin: Warm, Dry and Normal Turgor; Negative Rash
Neuro: Awake, Alert, Oriented and Nonfocal/Grossly Intact; Negative Tremors
Data Reviewed
-
Labs: Labs Reviewed by me and Discussed with Patient
[2024-04-13] MEDS: ROBITUSSIN 200 MG PO (11:50)
--- NOTE | 2024-04-13 13:24 | PTCARENOTE ---
pt blood pressure SBP 70s to 80s with map > 65 , has been oob in chair without any symptoms , he diuresed 1200 of urine thus far , Dr Patel notified of my concerns and pt now with daily Lasix verses twice daily and Coreg now has blood pressure
parameters
--- NOTE | 2024-04-13 15:17 | PTCARENOTE ---
pt MSAS 1-3 today , oriented conversation , impulsive at times , no need for 1:1 nursing , bed alarm on for safety , pt is aware he needs to utilize call barreto if he needs assistance
[2024-04-13] MEDS: COREG PO (19:29)
[2024-04-13] MEDS: MELATONIN 5 MG PO (19:30)
--- NOTE | 2024-04-13 22:52 | PTCARENOTE ---
Assumed care of patient from previous RN. Patient is aox3 but can be confused and forgetful at times. Sinus roseline on the monitor. 2L on patient due to desating to 85-86%. Patient now 96% with 2L. Patient has productive cough. Patient using urinal
and call barreto appropriately. Moat recent MSAS was 1. Changed all linens and used CHG and bathing cloths to clean up patient for bed. Assessment and Vital signs as documented. Call barreto in reach.
[2024-04-14] VITALS (15 sets, daily range): BP systolic 87–148; BP diastolic 59–90; BMI 21.9
[2024-04-14 04:57] LABS: Blood Urea Nitrogen 33 mg/dl (9-20); Calcium 8.6 mg/dl (8.4-10.2); Carbon Dioxide 33 mmol/L (22-30); Chloride 97 mmol/L (98-107); Estimated Creatinine Clearance 95 ml/min; Glucose 100 mg/dl (70-99); Potassium 3.6 mmol/L (3.5-5.1); Sodium 136 mmol/L (135-145); eGFR > 60.00
[2024-04-14 05:43] LABS: % Basophils 0.7 % (0-2); % Eosinophils 1.2 % (0-6); % Immature Granulocytes 0.3 % (0-0.5); % Lymphocytes 23.4 % (20.5-51.1); % Monocytes 8.4 % (1.7-9.3); Absolute Eosinophils 0.1 10^3/uL (0-0.7); Absolute Lymphocytes 1.4 10^3/uL (1.2-3.4); Absolute Monocytes 0.5 10^3/uL (0.1-0.6); Absolute Neutrophils 3.9 10^3/uL (1.4-6.5); Hemoglobin 11.6 g/dL (13.0-18.0); Mean Corp Hgb Conc. 34.1 g/dL (33.0-37.0); Mean Corpuscular Hgb 35.7 pg (27.0-31.0); Mean Corpuscular Volume 104.6 fL (80.0-94.0); Mean Platelet Volume 11.3 fL (7.4-10.4); Nucleated Red Blood Cells % 0 % (-); Platelet Count 140 10^3/uL (130-400); Red Blood Cell Count 3.25 10^6/uL (4.70-6.10); Red Cell Dist. Width 14.6 % (11.5-14.5); White Blood Cell Count 5.9 10^3/uL (4.8-10.8)
[2024-04-14] MEDS: DIOVAN 160 MG PO (07:59)
[2024-04-14] MEDS: LIPITOR 80 MG PO (07:59)
[2024-04-14] MEDS: VITAMIN B1 100 MG PO ×2 (07:59→19:29)
[2024-04-14] MEDS: LOW STRENGTH ASPIRIN 81 MG PO (07:59)
[2024-04-14] MEDS: KEPPRA 500 MG PO ×2 (07:59→19:29)
[2024-04-14] MEDS: VITAMIN B-12 1000 MCG PO (07:59)
[2024-04-14] MEDS: LASIX 40 MG IV (08:00)
[2024-04-14] MEDS: NICODERM TRANSDERMAL 14 MG TRANSDERM (08:00)
[2024-04-14] MEDS: FOLVITE 1 MG PO (08:00)
[2024-04-14] MEDS: HEPARIN 5000 UNITS SC ×2 (08:01→19:28)
[2024-04-14] MEDS: COREG 25 MG PO (08:02)
--- NOTE | 2024-04-14 08:49 | W.PN.CARDCBS ---
Addendum entered and electronically signed by Nba Spain MD 04/14/24 11:11:
Also, please keep carvedilol at 25mg twice daily
Addendum entered and electronically signed by Nba Spain MD 04/14/24 11:08:
Please check BMP in 1 week
Original Note:
Today's Communication / Plan
-
Begin discharge planning
Medication recommendations listed below
Impression / Plan
-
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
Assessment:
-Presentation with SOB, LE edema
Acute HFpEF
HTN emergency, improving
Acute hypoxic respiratory failure, currently on high flow O2
� Likely multifactorial in the setting of COPD, heart failure, possible infection
Elevated troponin
Leukocytosis
CAD with [place] status post LAD and circumflex stents in 2003
Chronic RBBB
Hypertension
Hyperlipidemia
Seizure disorder
History of pancreatitis
Chronic alcohol abuse
Ongoing tobacco use with suspected COPD
ECHO 07/2016: EF 60 to 65%, trace MR, aortic sclerosis, normal right heart
Echo 04/11/2024: Normal LV RV, EF 50%, trace MR, mild AI, mild TR PASP 35 mmHg, sinus of Valsalva 3.7 cm, ascending aorta 4.0 cm
Plan:
From cardiac standpoint, he looks well, no evidence of heart failure on exam.
Transition to oral furosemide 40 mg daily, add spironolactone 12.5 mg daily.
He is relatively bradycardic and hypotensive, will de-escalate valsartan back to 80 mg a day and carvedilol to 12.5 mg twice daily.
Would consider an SGLT2 antagonist as an outpatient. Okay to hold off as it may have been that hypertension was a primary cryogenic transport driver of HFpEF. Also EtOH may have been playing a role.
Okay to begin discharge planning. I would not object to discharge today.
Recommended cardiac medications at discharge:
Aspirin 81 mg a day,
Atorvastatin 80 mg daily
Carvedilol 25 mg twice daily, furosemide 40 mg daily
Spironolactone 12.5 mg daily
Valsartan 80 mg a day
Carvedilol 12.5 mg daily
Consider outpatient sestamibi study
We will arrange for cardiac follow-up
Progress Note - Able Bodied Tankerman
Subjective
Date of Service: April 14, 2024:
He feels well, wants to go home
Current meds: Subcu heparin, aspirin 81 mg a day, atorvastatin 80 mg a day, carvedilol 25 mg p.o. twice daily, vitamin B12, levetiracetam 500 every 12, nicotine patch, folic acid, thiamine, melatonin, valsartan 160 mg a day, furosemide 40 mg IV daily
109/60, pulse 62, resp rate 17, afebrile, weight is 69.2 kg, if accurate down 2 kg, intake and output -2000 mL, cough, coarse breath sounds, regular rate and rhythm, no obvious murmurs, abdomen and extremities benign
Chest x-ray on the , possible mild increase markings, COPD interstitial changes
Hemoglobin 11.6, white count 5.9, platelets 140, BUN and creatinine 33 and 0.7, proBNP was 1500 on admission, troponin was 0.058, peaked at 0.075
Echo 04/11/2024: EF 58%, normal RV, trace MR, aortic sclerosis mild aortic regurgitation, pulmonary artery systolic pressure 35 mmHg, ascending aorta 4.0 cm
ECG sinus rhythm right bundle branch block left anterior fascicular block, lateral MA
Objective
Labs:
04/14/24 04:18
04/14/24 04:18
Labs
Hgb 11.6 g/dL (13.0-18.0) L 04/14/24 04:18
Hct 34.0 % (39.0-52.0) L 04/14/24 04:18
Plt Count 140 10^3/uL (130-400) 04/14/24 04:18
PT 16.6 Sec (11.4-14.6) H 04/11/24 03:45
INR 1.28 04/11/24 03:45
APTT 31.3 Sec (23.4-35.0) 04/11/24 03:45
Sodium 136 mmol/L (135-145) 04/14/24 04:18
Potassium 3.6 mmol/L (3.5-5.1) 04/14/24 04:18
BUN 33 mg/dl (9-20) H 04/14/24 04:18
Creatinine 0.7 mg/dL (0.7-1.3) 04/14/24 04:18
Glucose 100 mg/dl (70-99) H 04/14/24 04:18
Troponins
04/11/24 04/11/24
09:45 16:05
Troponin I 0.073 H* 0.058 H*
Vital Signs and I&O:
Vital Signs
Temp Pulse Resp BP Pulse Ox
36.7 C 62 17 109/60 90
04/14/24 07:40 04/14/24 08:02 04/14/24 08:01 04/14/24 08:02 04/14/24 08:01
Vital Signs
Temp Pulse Resp BP Pulse Ox
36.7 C 62 17 109/60 90
04/14/24 07:40 04/14/24 08:02 04/14/24 08:01 04/14/24 08:02 04/14/24 08:01
Intake & Output
04/12/24 04/13/24 04/14/24 04/15/24
07:59 07:59 07:59 07:59
Intake Total 360 / 360 220 / 470 500 / 500
Output Total 2500 / 2500 2625 / 2625 1350 / 1350 300 / 300
Balance -2140 / -2140 -2405 / -2155 -850 / -850 -300 / -300
Physical Exam
Physical Exam
See above
--- NOTE | 2024-04-14 09:18 | PTCARENOTE ---
Assumed care of patient at beginning of this shift from previous RN with O2 2l n/c in use; POx 91-92%. Exp wheeze noted posteriorly with no c/o SOB and no JIN noted. Patient Ox3 but forgetful; he was found to be incontinent of stool and holding some
in his hands as well. He has been using the call barreto appropriately and using the urinal without difficulty. MSAS =1. BP 95/82 then recycled for 109/60 with HR in the low 60s. See worklist for full assessment and vital signs.
[2024-04-14] MEDS: ALDACTONE 12.5 MG PO (11:49)
[2024-04-14] MEDS: KCL 40 MEQ PO (11:49)
--- NOTE | 2024-04-14 13:14 | WOUNDNOTE ---
[facility] RN note: Patient admitted with SOB, pulmonary edema. Patient lives alone.
See H&P for complete history.
PMH: HTN, smoker, CAD, ETOH use disorder
Wound Location and type/assessment: Patient admitted with: newly R knee abrasion. Blanchable mild red heels (intact). Consult for 'penis ulcer' however, no ulcer noted on penis. Sacrum mild dull red and intact.
Appetite: good.
Pressure redistribution devices in place: [email or web address] air bed. Patient moves self easily in bed.
Plan: Heels off bed with pillow. Instructed patient pressure injury prevention measures. Will sign off. Discussed with HENRY Cruz.
--- NOTE | 2024-04-14 14:55 | W.PN.HOSP.TC ---
Today's Communication/Plan
-
For SNF
Assessment / Plan
Assessment / Plan
NAD
Scleral Anicteric
MMM
No JVD
CTABL
RRR, S1/S2
Soft, NT, ND, BS+
Warm, Dry
#Acute hypoxemic and hypercapnic respiratory failure
#Flash pulmonary edema/hypertensive emergency
#Chronic hypertension
-Presented with acute respiratory distress from flash pulmonary edema due to HTN
-Blood pressure in the ED up to 233/127 mmHg, CXR showed pulmonary edema, elevated BNP
-Status post nitroglycerin drip; valsartan dose was increased to 160 mg on 04/12
-Initially required BiPAP which has since been titrated down to high flow nasal cannula
-Initially had CO2 retention, possibly with respiratory fatigue; ABG 04/12 without hypercapnia
-Echocardiogram with preserved LVEF, no other clinically significant findings
-Currently on 10 L O2, x-ray improving; made n.p.o. until speech eval
Plan
-Continue with IV Lasix 40 mg daily; monitor I's/O's + weights + BMP
-Continue antihypertensive regimen with BP goal <140/90
-Continue with bronchodilators; defer against steroid as low suspicion for COPD flare
-Continue with modified diet and aspiration precautions
-SpO2 goal 88 to 94% with likely underlying COPD
#Acute metabolic encephalopathy
-Likely multifactorial with alcohol withdrawal, hypoxemia/hypercapnia, high stimulation environment
-He is awake and alert though does seem confused at times and asks odd questions
-Anticipate that this will improve with oxygen weaning and diuresis
-Most recent ABG on 04/12 without hypercapnia
-Monitor MSE, improving as of 04/13
#Elevated troponin
#H/O CAD s/p LAD and LCx PCI (2006)
#Chronic dyslipidemia
-History of ASCVD with multiple coronary stents placed
-Home medication regimen includes beta-roderick, ARB, ASA, high intensity statin
-Had some chest pain; Trop trend 0.029 - 0.075 - 0.073; no ischemic ECG
-Low suspicion for ACS; likely nonischemic myocardial injury from hypoxemia and HTN
-Would likely benefit from OP stress echo versus LHC to reassess coronaries
#Leukocytosis
-WBC count here 12.8�12.4; has not had any fevers or other infectious findings
-Suspect that this is reactive with his hypertensive crisis and hypoxemic events
-Resolved without antibiotics
#Macrocytic anemia
-Hemoglobin down trended after arrival from 12.3-10.7
-Has not noted any signs of active bleeding; LFTs normal, no signs of hemolysis
-Will order iron studies, B12, folate level to assess for deficiency
-Trend CBC while here and monitor for signs of bleeding
-May need OP follow-up with hematology for consideration of bone marrow bx
#Seizure disorder
-Unclear etiology, question if this is related to his alcohol use disorder
-Home regimen includes Keppra 500 mg twice daily
-No signs of seizure activity since admission here
#Alcohol use disorder
-Currently with 2-3 drinks daily; states last drink was 3 to 4 days ago
-States that he drinks much less now than previously
-Monitor CIWA/MSAS for signs of alcohol withdrawal
-Replete folate and thiamine
#Active tobacco user
-States he currently smokes 1 pack of cigarettes a week
-With hypercapnia on arrival there is concern he has underlying COPD
-Will need OP follow-up with pulm for PFTs and 6 MWT
-Consider discharge with inhalers as needed
-Encourage absolute smoking cessation
Begin DC planning
Anticipated Discharge: Within 24 hours
Subjective/Interval History
-
Date of Service: April 14, 2024
Seen and examined. No new complaints. No acute overnight events
Objective Data
-
Labs:
Laboratory Results
04/14/24
04:18
WBC 5.9
Hgb 11.6 L
Hct 34.0 L
Plt Count 140
Sodium 136
Potassium 3.6
Chloride 97 L
Carbon Dioxide 33 H
BUN 33 H
Creatinine 0.7
Glucose 100 H
Calcium 8.6
Vital Signs:
Vital Signs
Temp Pulse Resp BP Pulse Ox
97.6 F 60 20 102/73 93
04/14/24 11:17 04/14/24 12:00 04/14/24 12:00 04/14/24 12:00 04/14/24 12:00
I&O
04/13/24 04/14/24 04/15/24
06:59 06:59 06:59
Intake Total 220 / 220 500 / 500
Output Total 2625 / 2625 1350 / 1350 1175 / 1175
Balance -2405 / -2405 -850 / -850 -1175 / -1175
--- NOTE | 2024-04-14 15:28 | CM ---
Patient with Hx Etoh Use Disorder with Dx Flash pulmonary edema/hypertensive emergency. O2 2L this am. Home O2 Assessment ordered. Dysphagia diet. MSAS per nursing. Pt/OT 04/13; ataxic gait, recommend skilled rehab. Per nurse assessment;
forgetful.
Spoke with Elle, PT/OT; she will ask them to work with patient again tomorrow before d/c.
Spoke with patient who is declining SNF for rehab stating he wants to go home at d/c. He agrees to VN for PT/OT and agrees to a referral to [facility]. He doesn't want to bother his as she is out of town.
Spoke with patient's Gena, listed as primary contact; states she is out of town and she is from the patient but still involved. She is glad CM called her because she is concerned about him going home. Their son Pierre will
talk with him about going to rehab. Gena was made aware of pending home O2 test - she is concerned about him going home with O2 as he smokes and she is uncertain he would quit.
Plan follow up after seen by PT/OT again.
Plan follow up after home O2 assessment.
[2024-04-14] MEDS: MELATONIN 5 MG PO (19:29)
[2024-04-14] MEDS: COREG PO (19:30)
[2024-04-15] VITALS (18 sets, daily range): BP systolic 91–127; BP diastolic 58–89; BMI 21.6
--- NOTE | 2024-04-15 00:29 | PTCARENOTE ---
assumed care of patient. pt is orientedx3 but very forgetful, setting bed alarm off frequently. pt able to take pills with water without issues. VSS. pt on RA 94%, non-productive cough noted. pt incontinent of stool x3 this shift, cleaned up and
attends now applied to patient. pt is able to use urinal at times without issues. bed alarm on. care ongoing.
[2024-04-15] MEDS: COREG 25 MG PO ×2 (08:39→19:34)
[2024-04-15] MEDS: DIOVAN 80 MG PO (08:39)
[2024-04-15] MEDS: LASIX 40 MG PO (08:39)
[2024-04-15] MEDS: ALDACTONE 12.5 MG PO (08:39)
[2024-04-15] MEDS: LIPITOR 80 MG PO (08:40)
[2024-04-15] MEDS: FOLVITE 1 MG PO (08:40)
[2024-04-15] MEDS: HEPARIN 5000 UNITS SC ×2 (08:40→19:34)
[2024-04-15] MEDS: NICODERM TRANSDERMAL 14 MG TRANSDERM (08:40)
[2024-04-15] MEDS: VITAMIN B1 100 MG PO ×2 (08:40→19:34)
[2024-04-15] MEDS: VITAMIN B-12 1000 MCG PO (08:40)
[2024-04-15] MEDS: LOW STRENGTH ASPIRIN 81 MG PO (08:40)
[2024-04-15] MEDS: KEPPRA 500 MG PO ×2 (08:40→19:34)
--- NOTE | 2024-04-15 10:30 | PTCARENOTE ---
Assumed care of patient at beginning of this shift from previous RN. Patient Ox3 but forgetful. Patient's had expressed concern that if patient goes home with oxygen that he will continue to smoke. This nurse spoke with patient about plans
after discharge and he stated he wanted to go to rehab. TT sent to both Dr Varela and Sarah GERBER.
--- NOTE | 2024-04-15 11:07 | W.PN.CARDCBS ---
Today's Communication / Plan
-
Discharge planning
No medication changes
BMP in a.m.
Impression / Plan
-
Primary Director Custom: last seen by Dr. Garduno in 2017
Assessment:
-Presentation with SOB, LE edema
Acute HFpEF
HTN emergency, improving
Acute hypoxic respiratory failure, currently on high flow O2
� Likely multifactorial in the setting of COPD, heart failure, possible infection
Elevated troponin
Leukocytosis
CAD with CO status post LAD and circumflex stents in 2003
Chronic RBBB
Hypertension
Hyperlipidemia
Seizure disorder
History of pancreatitis
Chronic alcohol abuse
Ongoing tobacco use with suspected COPD
ECHO 07/2016: EF 60 to 65%, trace MR, aortic sclerosis, normal right heart
Echo 04/11/2024: Normal LV RV, EF 50%, trace MR, mild AI, mild TR PASP 35 mmHg, sinus of Valsalva 3.7 cm, ascending aorta 4.0 cm
Plan:
He remains stable from a cardiac standpoint.
Okay to proceed with discharge planning.
Will check BMP in AM.
Recommended cardiac medications at discharge:
Aspirin 81 mg a day,
Atorvastatin 80 mg daily
Carvedilol 25 mg twice daily, furosemide 40 mg daily
Spironolactone 12.5 mg daily
Valsartan 80 mg a day
Carvedilol 25 mg twice daily
Consider outpatient sestamibi study
We will arrange for cardiac follow-up
Progress Note - Director Custom
Subjective
Date of Service: April 15, 2024:
No complaints, perseverating on discharge plans, frequently repeating questions
Medications: Subcu heparin, aspirin 81 mg a day, atorvastatin 80 mg a day, Keppra 500 twice daily, nicotine patch, folic acid, thiamine, carvedilol 25 twice daily, valsartan 80 mg daily, furosemide 40 mg daily, spironolactone 12.5 mg daily
102/89, pulse 67, respiratory rate 20, afebrile, sats 96%, head neck exam unremarkable, lungs with coarse breath sounds, rhonchi, regular rate rhythm without obvious murmurs JVD okay not much edema abdomen benign no labs today, hemoglobin was 11.6,
yesterday BUN and creatinine were 33 and 0.7, was transition to oral diuretics yesterday
Objective
Labs:
04/14/24 04:18
04/14/24 04:18
Labs
Hgb 11.6 g/dL (13.0-18.0) L 04/14/24 04:18
Hct 34.0 % (39.0-52.0) L 04/14/24 04:18
Plt Count 140 10^3/uL (130-400) 04/14/24 04:18
PT 16.6 Sec (11.4-14.6) H 04/11/24 03:45
INR 1.28 04/11/24 03:45
APTT 31.3 Sec (23.4-35.0) 04/11/24 03:45
Sodium 136 mmol/L (135-145) 04/14/24 04:18
Potassium 3.6 mmol/L (3.5-5.1) 04/14/24 04:18
BUN 33 mg/dl (9-20) H 04/14/24 04:18
Creatinine 0.7 mg/dL (0.7-1.3) 04/14/24 04:18
Glucose 100 mg/dl (70-99) H 04/14/24 04:18
Vital Signs and I&O:
Vital Signs
Temp Pulse Resp BP Pulse Ox
36.5 C 67 20 102/89 96
04/15/24 07:57 04/15/24 10:11 04/15/24 10:11 04/15/24 10:11 04/15/24 10:57
Vital Signs
Temp Pulse Resp BP Pulse Ox
36.5 C 67 20 102/89 96
04/15/24 07:57 04/15/24 10:11 04/15/24 10:11 04/15/24 10:11 04/15/24 10:57
Intake & Output
04/13/24 04/14/24 04/15/24 04/16/24
07:59 07:59 07:59 07:59
Intake Total 220 / 470 500 / 500
Output Total 2625 / 2625 1350 / 1350 1525 / 1525
Balance -2405 / -2155 -850 / -850 -1525 / -1525
Physical Exam
Physical Exam
See above
--- NOTE | 2024-04-15 11:22 | CM ---
Addendum entered by Maxine Santiago RN 04/15/24 13:19:
Patient is setup for 10am ambulance transport to [facility] tomorrow- informed.
Plan [facility] tomorrow by ambulance - 10am transport scheduled.
Original Note:
Patient with Hx Etoh Use Disorder with Dx Flash pulmonary edema/hypertensive emergency, Acute metabolic encephalopathy. O2 2L. Home O2 Assessment yesterday. PT/OT 04/15 unsteady and impulsive, recommend skilled rehab. Per nurse assessment;
forgetful.
[facility] ref[facility] per Gena's request. Per Gena, their son spoke with the patient about going to rehab. shares that she is a nurse and used to work at [employer].
Met with patient and spoke with Gena by phone; both agree to [facility] tomorrow. IMM completed. Patient still does not seem to have insight that he needs rehab, saying he is walking ok and probably only needs to be there for 3
days - reset his expectations that he will need more than 3 days to get the benefit of SNF rehab.
Spoke with Macie, [facility]; she spoke with the and is able to accept the patient tomorrow. The phone for report [phone], fax [phone]. She is requesting 10am ambulance transport due to timing of other admissions.
Plan [facility] SNF tomorrow by ambulance.
--- NOTE | 2024-04-15 14:23 | PTCARENOTE ---
Per CM, plan is for patient to go to [facility] tomorrow.
--- NOTE | 2024-04-15 14:24 | PTCARENOTE ---
Patient c/o 'stomach churning' and R hand feeling tight. He denied nausea. No edema noted to hand. Dr Varela made aware via TT.
[2024-04-15] MEDS: MAALOX PLUS 1 TABLET PO (16:04)
[2024-04-15] MEDS: MELATONIN 5 MG PO (19:34)
[2024-04-15] MEDS: ROBITUSSIN 200 MG PO (19:34)
--- NOTE | 2024-04-15 22:12 | PTCARENOTE ---
assumed care of patient. pt is AAOx2/3- at times forgets he is in the hospital. setting bed alarm off at times but redirectable. VSS. 93% RA. pt incontinent of stool at shift change. full bed change done. able to take medications without issues. SB
on the monitor. care ongoing.
[2024-04-16] VITALS: BP 92/56
[2024-04-16 02:00] VITALS: BP 84/62
[2024-04-16 02:01] VITALS: BP 99/62
[2024-04-16 03:56] VITALS: BMI 21.8
[2024-04-16 04:00] VITALS: BP 117/96
[2024-04-16 04:41] LABS: Blood Urea Nitrogen 34 mg/dl (9-20); Calcium 8.8 mg/dl (8.4-10.2); Carbon Dioxide 31 mmol/L (22-30); Chloride 98 mmol/L (98-107); Estimated Creatinine Clearance 66 ml/min; Glucose 116 mg/dl (70-99); Potassium 3.9 mmol/L (3.5-5.1); Sodium 134 mmol/L (135-145); eGFR > 60.00
[2024-04-16 06:00] VITALS: BP 120/79
[2024-04-16 09:44] VITALS: BP 123/72
[2024-04-16] MEDS: ALDACTONE 12.5 MG PO (09:45)
[2024-04-16] MEDS: VITAMIN B-12 1000 MCG PO (09:46)
[2024-04-16] MEDS: DIOVAN 80 MG PO (09:46)
[2024-04-16] MEDS: LOW STRENGTH ASPIRIN 81 MG PO (09:46)
[2024-04-16] MEDS: LIPITOR 80 MG PO (09:47)
[2024-04-16] MEDS: LASIX 40 MG PO (09:47)
[2024-04-16] MEDS: VITAMIN B1 100 MG PO (09:47)
[2024-04-16] MEDS: FOLVITE 1 MG PO (09:48)
[2024-04-16] MEDS: KEPPRA 500 MG PO (09:48)
[2024-04-16] MEDS: NICODERM TRANSDERMAL 14 MG TRANSDERM (09:49)
[2024-04-16] MEDS: HEPARIN 5000 UNITS SC (09:50)
--- NOTE | 2024-04-16 10:01 | W.PN.UPDATE ---
Update Note
Progress Note Update
plan for DC to SNF today. as Cr bumped from 0.7 to 1 overnight and EF normal, will stop aldactone and check BMP in 1 week. will consider adding SGLT2 inhibitor as OP. cardiac follow up arranged. will sign off.
--- NOTE | 2024-04-16 10:18 | W.PN.HOSP.TC ---
Today's Communication/Plan
-
dc to snf
More than 30 minutes spent in discharge including
Final examination of the patient
Summarizing hospital stay
Instructions for continuing care to all relevant caregivers
Preparation of discharge records, prescriptions, and referral forms
Total time spent (in minutes): 33mins
Assessment / Plan
Assessment / Plan
NAD
Scleral Anicteric
MMM
No JVD
CTABL
RRR, S1/S2
Soft, NT, ND, BS+
Warm, Dry
#Acute hypoxemic and hypercapnic respiratory failure, improved, was actually on room air when i saw him this AM, no evidence of resp distress nor conversational dyspnea
#Flash pulmonary edema/hypertensive emergency
#Chronic hypertension
-Presented with acute respiratory distress from flash pulmonary edema due to HTN
-Blood pressure in the ED up to 233/127 mmHg, CXR showed pulmonary edema, elevated BNP
-Status post nitroglycerin drip; valsartan dose was increased to 160 mg on 04/12
-Initially required BiPAP which has since been titrated down to high flow nasal cannula
-Initially had CO2 retention, possibly with respiratory fatigue; ABG 04/12 without hypercapnia
-Echocardiogram with preserved LVEF, no other clinically significant findings
Plan
-Continue with IV Lasix 40 mg daily; monitor I's/O's + weights + BMP
-Continue antihypertensive regimen with BP goal <140/90
-Continue with bronchodilators; defer against steroid as low suspicion for COPD flare
-Continue with modified diet and aspiration precautions
-SpO2 goal 88 to 94% with likely underlying COPD
#Acute metabolic encephalopathy
-Likely multifactorial with alcohol withdrawal, hypoxemia/hypercapnia, high stimulation environment
-He is awake and alert though does seem confused at times and asks odd questions
-Anticipate that this will improve with oxygen weaning and diuresis
-Most recent ABG on 04/12 without hypercapnia
-Monitor MSE, improving as of 04/13
#Elevated troponin
#H/O CAD s/p LAD and LCx PCI (2006)
#Chronic dyslipidemia
-History of ASCVD with multiple coronary stents placed
-Home medication regimen includes beta-roderick, ARB, ASA, high intensity statin
-Had some chest pain; Trop trend 0.029 - 0.075 - 0.073; no ischemic ECG
-Low suspicion for ACS; likely nonischemic myocardial injury from hypoxemia and HTN
-Would likely benefit from OP stress echo versus LHC to reassess coronaries
#Leukocytosis
-WBC count here 12.8�12.4; has not had any fevers or other infectious findings
-Suspect that this is reactive with his hypertensive crisis and hypoxemic events
-Resolved without antibiotics
#Macrocytic anemia
-Hemoglobin down trended after arrival from 12.3-10.7
-Has not noted any signs of active bleeding; LFTs normal, no signs of hemolysis
-Will order iron studies, B12, folate level to assess for deficiency
-Trend CBC while here and monitor for signs of bleeding
-May need OP follow-up with hematology for consideration of bone marrow bx
#Seizure disorder
-Unclear etiology, question if this is related to his alcohol use disorder
-Home regimen includes Keppra 500 mg twice daily
-No signs of seizure activity since admission here
#Alcohol use disorder
-Currently with 2-3 drinks daily; states last drink was 3 to 4 days ago
-States that he drinks much less now than previously
-Monitor CIWA/MSAS for signs of alcohol withdrawal
-Replete folate and thiamine
#Active tobacco user
-States he currently smokes 1 pack of cigarettes a week
-With hypercapnia on arrival there is concern he has underlying COPD
-Will need OP follow-up with pulm for PFTs and 6 MWT
-Consider discharge with inhalers as needed
-Encourage absolute smoking cessation
dc to snf.
Anticipated Discharge: Today
Subjective/Interval History
-
Date of Service: April 16, 2024
seen and examined. no new complaints. no acute overnight events
Objective Data
-
Labs:
Laboratory Results
04/16/24
03:58
Sodium 134 L
Potassium 3.9
Chloride 98
Carbon Dioxide 31 H
BUN 34 H
Creatinine 1.0
Glucose 116 H
Calcium 8.8
Vital Signs:
Vital Signs
Temp Pulse Resp BP Pulse Ox
98.7 F 58 19 123/72 92
04/16/24 07:49 04/16/24 09:45 04/16/24 09:44 04/16/24 09:47 04/15/24 20:00
I&O
04/15/24 04/16/24 04/17/24
06:59 06:59 06:59
Output Total 1525 / 1525 550 / 550 325 / 325
Balance -1525 / -1525 -550 / -550 -325 / -325
[2024-04-16] MEDS: COREG 25 MG PO (10:19)
--- NOTE | 2024-04-16 10:21 | W.DCSUMMARY ---
Discharge Summary
Discharge Data
Date of Admission: 04/10/24
Date of Discharge: 04/16/24
-
Pending Results: No
Hospital Course
73-year-old male past medical history of seizure disorder, CAD, hypertension, hyperlipidemia, alcohol use disorder
Presented with shortness of breath along with some lower extremity swelling found to have low oxygen saturations started on supplemental O2. Believed secondary to CHF exacerbation in the setting of hypertensive emergency. Started on IV diuretics.
Additionally found to have elevated cardiac enzymes. This was believed to be secondary to heart failure exacerbation uncontrolled/hypertensive emergency. Evaluated by cardiology, 2D echocardiogram completed which demonstrated a EF of 58% and a
estimated pulmonary artery pressure of 35 with mild tricuspid regurgitation. Without evidence of wall motion abnormalities. Continue use of supplemental o2, with goal spo2 of 88-92%, wean as tolerated
Hypertensive emergency was treated with nitroglycerin drip eventually titrated off. Continue on home dose valsartan. IV Lasix transition to oral Lasix. continued on carvedilol. Will need outpatient cardiology follow-up in likely will need to be
started on SGLT2 inhibitor such as Jardiance/Farxiga.
Additionally there is concern for acute metabolic encephalopathy this was believed to be secondary to acute alcohol withdrawal hypoxemia/hypercapnia which improved.
Evaluated by physical therapy recommended SNF with oxygen use.
Need to stop smoking with the use of oxygen as this is extremely hazardous and can cause explosions. Continue nicotine replacement therapy with transdermal nicotine patches.
CXR
IMPRESSION:
Mild bilateral suspected airspace disease in the lung bases, right greater than left, concerning for pneumonia. Clinical and laboratory correlation recommended. Fibrosis cannot be excluded. Probably stable considering technique
2d echo
CONCLUSIONS
Normal left ventricular chamber size.
Normal left ventricular systolic function.
Left ventricular ejection fraction is 58% by Alaniz's biplane method of discs.
Normal right ventricular size and function.
Trace mitral regurgitation.
Thickened aortic valve with normal leaflet excursion.
Mild aortic regurgitation.
Tricuspid valve opens normally.
Mild tricuspid regurgitation.
Estimated pulmonary artery pressure of 35 mmHg, assuming a right atrial
pressure of 3 mmHg.
Pulmonic valve opens normally.
Trace pulmonic regurgitation.
Sinuses of Valsalva (3.7 cm) and ascending aorta ( 4.0 cm) dilatation.
The IVC is of normal size and demonstrates normal respiratory variation.
Discharge Plan
-
Patient Disposition: Correction/SNF
Discharge Diagnosis/Procedures: HFpEF exacterbation
Diet: As tolerated, Low Cholesterol, 2 Gram Sodium and Restrict fluids to 48 oz
Activity: As tolerated
Blood Work: BMP in 1 week
Specialty Instructions: Weigh Daily- Call MD for wt gain/loss 3 lbs overnight/5 lbs in 1 week
Activity Restrictions/Additional Instructions:
Presented with shortness of breath along with some lower extremity swelling found to have low oxygen saturations started on supplemental O2. Believed secondary to CHF exacerbation in the setting of hypertensive emergency. Started on IV diuretics.
Additionally found to have elevated cardiac enzymes. This was believed to be secondary to heart failure exacerbation uncontrolled/hypertensive emergency. Evaluated by cardiology, 2D echocardiogram completed which demonstrated a EF of 58% and a
estimated pulmonary artery pressure of 35 with mild tricuspid regurgitation. Without evidence of wall motion abnormalities.
Hypertensive emergency was treated with nitroglycerin drip eventually titrated off. Continue on home dose valsartan. IV Lasix transition to oral Lasix. continued on carvedilol. Will need outpatient cardiology follow-up in likely will need to be
started on SGLT2 inhibitor such as Jardiance/Farxiga.
Additionally there is concern for acute metabolic encephalopathy this was believed to be secondary to acute alcohol withdrawal hypoxemia/hypercapnia which improved.
Evaluated by physical therapy recommended SNF with oxygen use.
Need to stop smoking with the use of oxygen as this is extremely hazardous and can cause explosions. Continue nicotine replacement therapy with transdermal nicotine patches.
CXR
IMPRESSION:
Mild bilateral suspected airspace disease in the lung bases, right greater than left, concerning for pneumonia. Clinical and laboratory correlation recommended. Fibrosis cannot be excluded. Probably stable considering technique
2d echo
CONCLUSIONS
Normal left ventricular chamber size.
Normal left ventricular systolic function.
Left ventricular ejection fraction is 58% by Alaniz's biplane method of discs.
Normal right ventricular size and function.
Trace mitral regurgitation.
Thickened aortic valve with normal leaflet excursion.
Mild aortic regurgitation.
Tricuspid valve opens normally.
Mild tricuspid regurgitation.
Estimated pulmonary artery pressure of 35 mmHg, assuming a right atrial
pressure of 3 mmHg.
Pulmonic valve opens normally.
Trace pulmonic regurgitation.
Sinuses of Valsalva (3.7 cm) and ascending aorta ( 4.0 cm) dilatation.
The IVC is of normal size and demonstrates normal respiratory variation.
Instructions: *[facility] Heart Failure Instructions
Referrals:
Eliu Leone MD [Family Provider] -
Lindsay Rios PA-C [Specified Professional Personl] - 05/22/24 2:40 pm (You have a cardiology follow-up appointment at the [facility] office. Please call with questions)
Prescriptions:
New
ipratropium-albuterol 0.5 mg-3 mg(2.5 mg base)/3 mL Solution For Nebulization
3 ml inhalation R Q4HPRN PRN (Reason: dyspnea, wheeze) Qty: 90 0RF
furosemide 40 mg Tablet
40 mg PO DAILY Qty: 30 0RF
nicotine 14 mg/24 hr Patch 24 Hour
14 mg transdermal DAILY Qty: 30 0RF
guaifenesin 100 mg/5 mL Liquid
200 mg PO Q4HPRN PRN (Reason: cough) Qty: 473 0RF
folic acid 1 mg Tablet
1 mg PO DAILY Qty: 30 0RF
thiamine mononitrate (vit B1) 100 mg Tablet
100 mg PO DAILY Qty: 30 0RF
Continued
carvedilol [Coreg] 25 MG tablet
25 mg PO BID
levetiracetam 500 MG tablet
500 mg PO BID
aspirin 81 MG tablet,chewable
81 mg PO DAILY
atorvastatin 80 mg Tablet
80 mg PO DAILY
valsartan 80 mg Tablet
80 mg PO DAILY
cyanocobalamin (vitamin B-12) 1,000 mcg Tablet
1,000 mcg PO DAILY
Discharge Orders:
Discharge Patient (As Directed); Ordered 04/16/24
Ordered By: Harry Varela
Discharge Date and Time
Print Language: TAMAZIGHT
--- NOTE | 2024-04-16 10:59 | PTCARENOTE ---
Report called to RN at [facility]. Transport on the way
--- NOTE | 2024-04-16 11:58 | CM ---
O2 2L. PT/OT 04/15 unsteady and impulsive, recommend skilled rehab. Per nurse assessment; confused, forgetful.
The patient was accepted by [facility] yesterday for short term rehab with request for 10am transport time. The phone for report [phone], fax [phone].
Patient and Gena agreed yesterday to d/c today to [facility] by ambulance, and IMM was completed yesterday.
Plan [facility] today by ambulance - 10am transport scheduled.
== END 2024-04-16 11:25 | DRG 304 ==
LOC: IMU 23:54
PROVIDERS: Internal Medicine; Internal Medicine Cardiovascular Disease; Nurse Practitioner Family; Physician Assistant; ADMITTING PHYSICIAN Hospitalist; ATTENDING PHYSICIAN Hospitalist; CONSULT PHYSICIAN Internal Medicine Cardiovascular Disease; EMERGENCY PHYSICIAN Student in an Organized Health Care Education/Training Program; FAMILY PHYSICIAN Family Medicine
PROC: 5A09357 Assistance with Respiratory Ventilation, Less than 24 Consecutive Hours, Continuous Positive Airway Pressure (ICD-10-PCS; 2024-04-10)
DX: I16.1 Hypertensive emergency (principal); G93.41 Metabolic encephalopathy; J96.01 Acute respiratory failure with hypoxia; J96.02 Acute respiratory failure with hypercapnia; I50.31 Acute diastolic (congestive) heart failure; F10.239 Alcohol dependence with withdrawal, unspecified; I5A Non-ischemic myocardial injury (non-traumatic); I11.0 Hypertensive heart disease with heart failure; F17.210 Nicotine dependence, cigarettes, uncomplicated; Z11.52 Encounter for screening for COVID-19; Z79.82 Long term (current) use of aspirin; Z79.899 Other long term (current) drug therapy; I25.10 Atherosclerotic heart disease of native coronary artery without angina pectoris; G40.909 Epilepsy, unspecified, not intractable, without status epilepticus; J44.9 Chronic obstructive pulmonary disease, unspecified; D53.9 Nutritional anemia, unspecified; F41.9 Anxiety disorder, unspecified; I70.0 Atherosclerosis of aorta; Z98.61 Coronary angioplasty status
CPT/HCPCS: 36600; 71045; 80048; 80053; 80076; 80306; 81003; 81015; 82010; 82077; 82805; 82977; 83735; 83880; 84100; 84484; 85025; 85610; 85730; 87502; 87811; 92526; 92610; 93005; 93306; 94640; 94660; 96374; 96375; 97163; 97167; 97530; 97535; 99291

== ENCOUNTER → 2024-04-23 11:57 | Outpatient (REF) | payer OTHER, MEDICARE, SELFPAY ==
[2024-04-23 12:47] LABS: % Basophils 0.7 % (0-2); % Immature Granulocytes 0.2 % (0-0.5); % Monocytes 12.4 % (1.7-9.3); % Neutrophils 51.7 % (42.2-75.2); Absolute Eosinophils 0.2 10^3/uL (0-0.7); Absolute Lymphocytes 1.3 10^3/uL (1.2-3.4); Absolute Monocytes 0.5 10^3/uL (0.1-0.6); Absolute Neutrophils 2.1 10^3/uL (1.4-6.5); Hematocrit 32.3 % (39.0-52.0); Hemoglobin 10.7 g/dL (13.0-18.0); Mean Corp Hgb Conc. 33.1 g/dL (33.0-37.0); Mean Corpuscular Hgb 35.2 pg (27.0-31.0); Mean Corpuscular Volume 106.3 fL (80.0-94.0); Mean Platelet Volume 11.5 fL (7.4-10.4); Nucleated Red Blood Cells % 0 % (-); Platelet Count 180 10^3/uL (130-400); Red Blood Cell Count 3.04 10^6/uL (4.70-6.10); Red Cell Dist. Width 13.7 % (11.5-14.5)
[2024-04-23 12:57] LABS: ALT (SGPT) 29 U/L (0-50); AST (SGOT) 24 U/L (17-59); Albumin 3.1 g/dl (3.5-5.0); Alkaline Phosphatase 56 U/L (38-126); Blood Urea Nitrogen 22 mg/dl (9-20); Calcium 8.7 mg/dl (8.4-10.2); Carbon Dioxide 29 mmol/L (22-30); Chloride 105 mmol/L (98-107); Glucose 86 mg/dl (70-99); Magnesium 2.1 mg/dl (1.6-2.3); Potassium 4.1 mmol/L (3.5-5.1); Sodium 138 mmol/L (135-145); Total Bilirubin 0.3 mg/dl (0.2-1.3); Total Protein 5.5 g/dl (6.3-8.2); eGFR > 60.00
[2024-04-23 13:02] LABS: NT-proBNP 457 pg/ml
== END ==
LOC: OLABN 11:57
PROVIDERS: ATTENDING PHYSICIAN Student in an Organized Health Care Education/Training Program
DX: I50.32 Chronic diastolic (congestive) heart failure (principal)
CPT/HCPCS: 36415; 80053; 83735; 83880; 85025

== ENCOUNTER 2024-08-20 09:28 | Inpatient (IN) | payer MEDICARE, SELFPAY ==
[2024-08-20] VITALS (16 sets, daily range): BP systolic 114–184; BP diastolic 68–118; BMI 23.5
[2024-08-20 02:06] LABS: Hematocrit 37.6 % (39.0-52.0); Hemoglobin 13.0 g/dL (13.0-18.0); Mean Corp Hgb Conc. 34.6 g/dL (33.0-37.0); Mean Corpuscular Volume 106.2 fL (80.0-94.0); Nucleated Red Blood Cells % 0 % (-); Platelet Count 128 10^3/uL (130-400); Red Cell Dist. Width 13.0 % (11.5-14.5)
[2024-08-20 02:29] LABS: ALT (SGPT) 36 U/L (0-50); AST (SGOT) 50 U/L (17-59); Albumin 4.3 g/dl (3.5-5.0); Alkaline Phosphatase 67 U/L (38-126); Blood Urea Nitrogen 50 mg/dl (9-20); Calcium 9.1 mg/dl (8.4-10.2); Carbon Dioxide 32 mmol/L (22-30); Chloride 106 mmol/L (98-107); Glucose 118 mg/dl (70-99); Potassium 4.4 mmol/L (3.5-5.1); Sodium 147 mmol/L (135-145); Total Protein 7.3 g/dl (6.3-8.2); eGFR > 60.00
[2024-08-20 02:51] LABS: Troponin I 0.036 ng/ml
[2024-08-20] MEDS: DECADRON 10 MG IV (03:11)
[2024-08-20] MEDS: DUONEB 3 ML INH ×5 (03:11→19:34)
--- NOTE | 2024-08-20 06:16 | ED.GENMED ---
History of Present Illness
General
Chief Complaint: Breathing Problem
Source: patient
Time Seen by Provider: 08/20/24 02:51
History of Present Illness
History of Present Illness:
Note:
CHIEF COMPLAINT(S)
Difficulty feeling the pedals while driving.
HISTORY OF PRESENT ILLNESS
The patient is a 74-year-old male who presents with difficulty feeling the pedals while driving, prompting him to seek medical attention. He describes his symptoms as long-standing but does not specify the exact onset. The patient admits to having
a persistent cough characterized as mucous-producing for the last couple of weeks. There is no documentation of chest pain confirmed, but he mentioned 'the bad kind of cough,' which could indicate discomfort. His smoking history includes smoking
half a pack of cigarettes daily for his entire adult life. His brother expressed concern regarding his condition, prompting his evaluation. The patient does not report being diabetic, but he is uncertain about his overall medical condition and
expresses a desire for tests to diagnose his symptoms.
SOCIAL HISTORY
The patient has a significant smoking history, consuming half a pack of cigarettes per day. This habit has been ongoing for many years.
PHYSICAL EXAM
- The patient reports difficulty feeling the pedals while driving.
- Persistent mucous-producing cough for a couple of weeks noted.
Nursing notes reviewed and vital signs reviewed.
PLAN
- Initiate a respiratory workup, including chest X-ray, to assess for underlying causes of the cough and potential hypoxia.
- Consider hospital admission due to hypoxia noted on oxygen, even when supplemented with two liters at home.
- Administer a breathing treatment to alleviate respiratory distress.
- Follow up on blood test results to assist in determining the cause of the symptoms.
DIFFERENTIAL DIAGNOSIS
The Differential Diagnosis includes, in no particular order and is not limited to:
- Chronic obstructive pulmonary disease (COPD) exacerbation
- Peripheral neuropathy potentially related to smoking
- Heart failure with subsequent decreased perfusion
- Diabetic peripheral neuropathy (if undisclosed diabetes exists)
- Pneumonia
- Interstitial lung disease
- Lung cancer
- Congestive heart failure
- Chronic bronchitis
- Hypoxia related to respiratory illness
CARE-UPDATE
08/20/24 - 03:04
The patients condition shows hypoxia despite oxygen therapy, contrasting with his typical state without home oxygen use. Notably, there is a reduction in opponent levels, now at 0.036, compared to the previous 0.058. BNP levels have risen to 600
from an earlier 457. The recent SX-ray reveals pulmonary vascular congestion and a potential right lower lobe infiltrate, which is new when compared to the last imaging on 01/19/2024.
Disposition:
SUMMARY OF ENCOUNTER
The patient is a 74-year-old male with a significant history of smoking and chronic obstructive pulmonary disease (COPD) who presented to the emergency department with difficulty breathing. Upon examination, the patient was noted to desaturate to
the high 80s when not receiving supplemental oxygen. The patient was placed on three liters of oxygen to maintain adequate oxygenation. Given the patients history and presentation, a COPD exacerbation was suspected, warranting further management.
DISPOSITION
Admit to the hospitalist service for further evaluation and management of COPD exacerbation.
ASSESSMENT
The primary concern is a COPD exacerbation, possibly due to persistent mucus-producing cough and smoking history contributing to respiratory compromise.
PLAN
The plan is to admit the patient for further evaluation and management, including oxygen therapy and monitoring for potential hypoxia. Additional diagnostics and treatment for COPD exacerbation will be conducted by the inpatient team.
INDEPENDENT REVIEW OF LABS AND INTERPRETATION OF TESTS
My independent review indicates desaturation into high 80s without supplemental oxygen, consistent with COPD exacerbation.
MEDICAL DECISION MAKING
1. Number and Complexity of Problems Addressed:
Chronic conditions affecting care include long-standing COPD and smoking history. Differential diagnosis considerations include COPD exacerbation, peripheral neuropathy, heart failure, pneumonia, lung cancer, congestive heart failure, chronic
bronchitis, and hypoxia related to respiratory illness.
2. Data:
Category 1:
The need for supplemental oxygen and desaturation was verified.
Previous admissions and possible exacerbations were considered due to past medical history.
3. Risk:
The patient required admission for close monitoring and management due to the risk of complications from COPD exacerbation and potential hypoxia.
DIAGNOSIS
- COPD exacerbation (J44.1)
- History of tobacco use disorder (Z87.891)
Past History
Past History
ED Past Medical History: CAD, HTN, Hypercholesterolemia, MD and Seizures
ED Past Surgical History: Cardiac
Social History
Tobacco: Smoker
Alcohol: Chronic alcoholic
Drug: None
Personal:
Living: with family
Employment: Retired
Family History
Family History: Other (nc)
Phy Exam
Physical Exam
Physical Exam:
Vital signs and allergy list reviewed and agreed with.
GENERAL: Alert , in minimal apparent distress
EYE: pupils equal, EOMI, anicteric
NECK: Supple, no significant adenopathy. No masses. Trachea midline
ENT: Oropharynx is clear, mmm.
CARDIAC: Regular rate and rhythm . No M/R/G
LUNGS: Clear breath sounds bilaterally, no acute respiratory distress, no wheezes/rales/rhonchi
ABDOMEN: Soft, without focal tenderness, no r/g, no cvat. Normal BSx4q
NEUROLOGICAL: Alert and oriented, no focal neuro deficits
SKIN: Warm and dry, skin intact.
MUSCULOSKELETAL: No edema, well perfused. Moves all 4 extremities
PSYCH: Normal and appropriate interaction.
Scores
Heart Failure Risk
Heart Failure Risk Score: Not Applicable
Course
Orders/Labs/Results
Orders:
Orders
08/20/24
Electrocardiogram (*1) Stat
Reason for Study: Chest Pain
Comment: DONE
08/20/24 01:19
Electrocardiogram (*1) Urgent
Reason for Study: Other
Other Reason for Exam: Respiratory Distress
Cardiac Monitoring- Treatment ONCE
EKG- Treatment ONCE
IV Insert/Care/Rem.- Treatment PRN
CR Chest - 2 Views Urgent
Comment:
Reason For Exam: respiratory distress
O2 Therapy [RESP] Urgent
Titrate/Wean O2 to maintain O2 sat greater than (%): 93
Special Instructions: TO MAINTAIN CONTINUOUS O2 SATS >/= 93%
Pulse Ox/cont/shift [RESP] Urgent
Quantity: 1
Special Instructions: continuous pulse ox
08/20/24 01:51
Complete Blood Count/With Diff Urgent
Comprehensive Metabolic Panel Urgent
NT-proBNP Urgent
Troponin I Urgent
08/20/24 03:04
Dexamethasone Sod Phosphate [Decadron] 10 mg IV NOW STA
Ipratropium/Albuterol Sulfate [Duoneb] 3 ml INH R NOW ONE
08/20/24 05:39
Troponin I Urgent
08/20/24 07:06
Ipratropium/Albuterol Sulfate [Duoneb] 3 ml INH R NOW ONE
08/20/24 08:00
0.9% Sodium Chloride 1000 ml [Nss] 1,000 ml Mvi, Adult [Multivitamin] 10 ml Thiamine Injection 100 mg IV 250 mls/hr
08/20/24 09:17
Admit/Transfer Patient As Directed
Co-Sign Provider:
Level of Care: Inpatient admission
Assign to:: Telemetry
Physician / Group: desire fonseca
Diagnosis: copd exacterbation
Reason for Telemetry: Other
Other Reason for Telemetry: alcohol withdrawl
Date to Stop Telemetry: 08/22/24
Time to Stop Telemetry: 11:00
Reason for Hospitalization: acute copd exacerbation, requiring supplemental o2, alcohol withdrawl
Expected length of stay greater than two midnights?: Yes
ELOS- Estimated Length of Stay in days: 2
I certify the patient meets the requirements for IP care: Yes
PRN Pain Medication Management As Directed
May give lesser potent ordered pain med per pt: Yes
preference::
Protocol:: Medication orders for pain may be administered in a
manner that supports deferring to patient preference
when the pt is:
- Requesting an ordered lesser potent pain medication.
Least to most potent pain medications are defined
as: acetaminophen < NSAID < tramadol < opioids
(morphine, oxycodone, hydromorphone).
- Requesting a lesser dose of the same medication IF
ORDERED.
- Requesting a less intrusive route of administration
if both routes are prescribed by the provider (PO <
IV).
08/20/24 09:19
Code Status As Directed
Resuscitation Status: Full Code
08/20/24 09:22
0.9% Sodium Chloride [Nss (Preservative Free)] See Protocol IV PRN PRN
Ipratropium/Albuterol Sulfate [Duoneb] 3 ml INH R Q4HPRN PRN
Lorazepam [Ativan] 1 mg PO Q2HPRN PRN
Lorazepam [Ativan] 2 mg IV Q1HPRN PRN
08/20/24 09:23
Rx Incentive Spirometry [RESP] Routine
Frequency: q1h while awake
Rx Pep / Acapela [RESP] Routine
08/20/24 09:26
MSAS SCORE As Directed
MSAS Score 0-4: Repeat MSAS every 2 hours until 0-4 for three consecutive assessments, then every 4 hours x 48
hours.
MSAS Score 5-7: For MILD withdrawl symptoms. Repeat MSAS and RASS every 2 hours
MSAS Score 8-11: For MODERATE withdrawal symptoms. Repeat MSAS and RASS every 1 hour. Consider ICU or IMU
level of care.
MSAS Score > 11: For SEVERE withdrawal symptoms. Repeat MSAS and RASS every 1 hour. Notify provider, consider
ICU level of care.
MSAS Additional Instructions: If no improvement or no decrease in score from severe to moderate within 12
hours, consult psychiatry
MSAS Notify Provider: Notify provider if patient requires more than 10 mg of Lorazepam in eight hour period.
08/20/24 09:38
Lorazepam [Ativan] 1 mg PO Q1HPRN PRN
08/20/24 10:00
Azithromycin [Zithromax] 500 mg PO DAILY
FOLic ACID [Folvite] 1 mg PO DAILY
Prednisone [Deltasone] 40 mg PO DAILY
Thiamine HCl [Vitamin B1] 100 mg PO BID
08/20/24 10:35
Bisacodyl [Dulcolax] 10 mg RECTAL [id number] PRN
Docusate W/Senna [Senokot-S] 1 tablet PO BIDPRN PRN
Polyethylene Glycol Powder [Miralax] 17 grams PO DAILYPRN PRN
08/20/24 10:35
Activity As Directed
Activity Level: With Assistance
As Tolerated
Precautions As Directed
Type of Precautions: Seizure
Vital Signs As Directed
Frequency: Per unit guidelines
DX Deep Vein Thrombosis Video Routine
08/20/24 11:30
Furosemide [Lasix] 40 mg PO DAILY
08/20/24 12:00
Ipratropium/Albuterol Sulfate [Duoneb] 3 ml INH R QID
08/20/24 16:00
Oxazepam [Serax] 30 mg PO Q8
Thiamine Injection 200 mg IV Q8
08/20/24 18:00
Enoxaparin Sodium [Lovenox] 40 mg SC QPM
08/20/24 20:00
Carvedilol [Coreg] 25 mg PO BID
Levetiracetam [Keppra] 500 mg PO BID
08/20/24 22:00
Aspirin Low Dose EC [Aspir Low (Enteric Coated)] 81 mg PO HS
08/21/24 06:00
Basic Metabolic Panel IN AM
Complete Blood Count/No Diff IN AM
08/21/24 08:00
Atorvastatin [Lipitor] 80 mg PO DAILY
Valsartan [Diovan] 80 mg PO DAILY
08/22/24 06:00
Basic Metabolic Panel IN AM
Complete Blood Count/No Diff IN AM
08/22/24 11:00
DC Protocol for Telemetry ONCE
08/23/24 06:00
Basic Metabolic Panel IN AM
Complete Blood Count/No Diff IN AM
08/24/24 06:00
Basic Metabolic Panel IN AM
Complete Blood Count/No Diff IN AM
08/25/24 06:00
Basic Metabolic Panel IN AM
Complete Blood Count/No Diff IN AM
Abnormal Lab Results
08/20/24 08/20/24
01:51 05:39
RBC 3.54 L 10^6/uL
(4.70-6.10)
Hct 37.6 L %
(39.0-52.0)
MCV 106.2 H fL
(80.0-94.0)
MCH 36.7 H pg
(27.0-31.0)
Plt Count 128 L 10^3/uL
(130-400)
MPV 10.6 H fL
(7.4-10.4)
Monocytes % 9.9 H %
(1.7-9.3)
Sodium 147 H mmol/L
(135-145)
Carbon Dioxide 32 H mmol/L
(22-30)
BUN 50 H mg/dl
(9-20)
Glucose 118 H mg/dl
(70-99)
Troponin I 0.036 H* ng/ml 0.037 H* ng/ml
08/20/24 01:51
08/20/24 01:51
Vital Signs
Initial and Last Documented VS:
Initial Vital Signs
Temp Pulse Resp BP Pulse Ox
98.3 F 66 24 114/68 92
08/20/24 01:13 08/20/24 01:13 08/20/24 01:13 08/20/24 01:13 08/20/24 01:13
Last Documented Vital Signs
Temp Pulse Resp BP Pulse Ox
98.4 F 80 18 170/86 95
08/20/24 14:56 08/20/24 15:22 08/20/24 15:22 08/20/24 14:56 08/20/24 15:22
*Pulse Oximetry
SaO2: 94
Nasal Cannula flow liters per minute: 2
Oxygen Mode of Delivery: Midflow Nasal Cannula
Patient hypoxic: yes
*Critical Care Note
Total Time (30-74mins, 75-104mins- exclusive of procedures): Critical care statement: (Critical care statement: A total of 35minutes of critical care time was provided for this patient. This time is separate from time utilized to perform the
aforementioned documented procedures. Aggregate critical care time includes only time during which I was engaged in work directl)
ED Attending Note
-
Portions of this chart may have been created with voice recognition software.� Occasional wrong word or��sound alike� substitutions may have occurred due to the inherent limitations of voice recognition software.
Discharge Plan
Departure
Patient Disposition: Admit
Date of Disposition: 08/20/24
Time of Disposition: 06:17
Admit to: Telemetry
Presentation/result/management discussed w/ accepting MD/DO: Hospitalist
Condition: Fair
Discharge Problem:
COPD exacerbation
Interventions
Interventions:
*Risk Screen - Suicide Last Done: 08/20/24 01:13
*General Assessment Last Done: 08/20/24 01:13
*Neglect/Abuse Screening Last Done: 08/20/24 01:13
*ED- Fall Risk Assessment Last Done: 08/20/24 01:13
*ED COVID-19 Vaccine History Last Done: 08/20/24 01:13
*Nursing Disposition Last Done: 08/20/24 10:25
ED- Cardiac Assessment Last Done: 08/20/24 02:56
ED- Pulmonary Assessment Last Done: 08/20/24 08:54
Discharge Date and Time
Discharge Date/Time: 08/20/24 10:26
[2024-08-20 06:19] LABS: Troponin I 0.037 ng/ml
[2024-08-20] MEDS: MULTIVITAMIN 1011 ML IV (08:00)
[2024-08-20] MEDS: MULTIVITAMIN 1011 MG IV (08:00)
[2024-08-20] MEDS: ATIVAN 1 MG PO ×9 (09:47→21:03)
[2024-08-20] MEDS: DELTASONE 40 MG PO (11:17)
[2024-08-20] MEDS: ZITHROMAX 500 MG PO (11:17)
[2024-08-20] MEDS: FOLVITE 1 MG PO (11:17)
[2024-08-20] MEDS: NICODERM TRANSDERMAL 14 MG TRANSDERM (11:18)
[2024-08-20] MEDS: VITAMIN B1 100 MG PO ×2 (11:18→20:53)
[2024-08-20] MEDS: LASIX 40 MG PO (12:03)
--- NOTE | 2024-08-20 14:18 | HPS.HSE ---
Family Physician
-
Family Physician: NOT KNOW UNKNOWN - PT DOES
Chief Complaint
-
sob cough
History of Present Illness
74 male history of seizure disorder, CAD, hypertension, hyperlipidemia alcohol use disorder presenting with shortness of breath that has been associated with persistent cough characterized mucus producing.
He also has difficulty as well as driving. This has been slowly getting worse for some time now. Tells me that he drinks 3 pints of vodka in 1 week.
Upon presenting found to have a respiratory rate 24 with SpO2 of 92%. Started on supplemental oxygen with improvement in respiratory rate and SpO2. Chest x-ray without evidence of infiltrative/pulmonary edema. Elevated troponins x 2, EKG reviewed
which was unchanged from previous.
Medical History
Past Medical History
Past Medical History: Reports COPD and HTN
Past Surgical History: Reports Other
Social History
Tobacco: Smoker
Alcohol: Chronic Alcoholic
Family History
Family History: Not pertinent
Allergies / Home Medications
Allergies reflects when Allergies were last updated in [employer].
Home Medications with original date entered in [employer]
Allergy/Medication List:
Allergies
Allergy/AdvReac Type Severity Reaction Status Date / Time
No Known Allergies Allergy Verified 08/20/24 01:13
Home Medications
carvedilol 25 mg tablet (Coreg) 25 mg PO BID Blood Pressure 10/26/17
levetiracetam 500 mg tablet 500 mg PO BID Neurological Condition 10/26/17
atorvastatin 80 mg tablet 80 mg PO DAILY High Cholesterol 01/19/24
valsartan 80 mg tablet 80 mg PO DAILY Blood Pressure 01/19/24
cyanocobalamin (vitamin B-12) 1,000 mcg tablet 1,000 mcg PO DAILY Supplement 04/10/24
aspirin 81 mg tablet,delayed release 81 mg PO HS Heart Disease/Condition 08/20/24
furosemide 40 mg tablet 40 mg PO .SEE BELOW Blood Pressure 08/20/24
psyllium 1 packet PO DAILYPRN PRN constipation 08/20/24
thiamine mononitrate (vit B1) 100 mg tablet 100 mg PO DAILY Supplement 08/20/24
Review of Systems
-
A 12 point ROS was completed and negative except as noted: Yes
Physical Exam
Vital Signs
Vital Signs
Temp Pulse Resp BP Pulse Ox
98.4 F 88 18 165/105 96
08/20/24 10:42 08/20/24 11:16 08/20/24 11:16 08/20/24 11:19 08/20/24 11:16
Physical Exam
General: Well Developed, Well Nourished and Other (Tremulous)
HEENT: NormoCephalic and Anicteric
Respiratory: Wheezes
Cardiac: Regular Rhythm
GI: Soft and Non Tender
Skin: Warm
Neuro: Awake, Alert, Oriented, No Motor Deficits and Nonfocal/grossly intact
Laboratory Results
-
08/20/24 01:51
08/20/24 01:51
Laboratory Results
Total Bilirubin 0.5 mg/dl (0.2-1.3) 08/20/24 01:51
AST 50 U/L (17-59) 08/20/24 01:51
ALT 36 U/L (0-50) 08/20/24 01:51
Alkaline Phosphatase 67 U/L (38-126) 08/20/24 01:51
Troponin I 0.037 ng/ml H* 08/20/24 05:39
Impression/Plan
-
Acute hypoxemic respiratory failure with respiratory rate of 24 and SpO2 92% on room air due to acute on chronic COPD exacerbation
Steroids
MDI/nebs
Azithromycin
Spirometer
Acapella
Alcohol use disorder
MSAS
Thiamine folate
PRN ativan
Serax
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
THiamine
B12
Folate
Can consider cymbalta 30mg daily
Ultimatly needs to stop drinking for which we discussed
Tobacco dependence
NRT offered
Seizure disorder
Keppra
Seizure precations
HLD
Continue statin
HTN
Continue antihypertensive
[2024-08-20] MEDS: THIAMINE INJECTION 200 MG IV (15:51)
[2024-08-20] MEDS: SERAX 30 MG PO (15:51)
[2024-08-20] MEDS: LOVENOX 40 MG SC (17:10)
[2024-08-20] MEDS: COREG 25 MG PO (20:52)
[2024-08-20] MEDS: ASPIR LOW (ENTERIC COATED) 81 MG PO (20:53)
[2024-08-20] MEDS: KEPPRA 500 MG PO (20:53)
--- NOTE | 2024-08-20 21:30 | PTCARENOTE ---
Pt consistently scoring between 8 and 9 throughout the day on MSAS. JIMY Cleary notified of high scores throughout the day. Pt transferred to IMU. Report called to Mahogany in IMU. Plan of care ongoing.
--- NOTE | 2024-08-20 22:15 | W.PN.UPDATE ---
Update Note
Progress Note Update
Pts MSAS consistently 8/9 on Q1H checks- he has received a total of 7mg of Ativan since arrival to floor. BP 160s/90s HR low 100s while on he floor. resting at this time but when awake- he is restless, tremulous with confused conversation. Unsure of
last known drink. More appropriate for IMU level of care.
--- NOTE | 2024-08-20 22:32 | W.PN.UPDATE ---
Update Note
Progress Note Update
BP 182/100 manual HR 70, MSAS 2 per RN, will order Hydralazine 5mg IV now.
[2024-08-20] MEDS: APRESOLINE 5 MG IV (22:40)
[2024-08-21] VITALS (13 sets, daily range): BP systolic 115–167; BP diastolic 69–99; BMI 23.9
[2024-08-21] MEDS: ATIVAN 1 MG PO (00:34)
[2024-08-21] MEDS: THIAMINE INJECTION 200 MG IV ×4 (00:34→23:35)
[2024-08-21] MEDS: SERAX 30 MG PO ×4 (01:22→23:35)
--- NOTE | 2024-08-21 01:30 | PTCARENOTE ---
Received verbal report from HENRY Lucas. Pt arrived to floor via bed. Pt ox1, only to self. SpO2 95% on 2L NC. NSR with BBB on monitor, hr 60-70s. MSAS ongoing, currently a 2 (see worklist). Assessment and vitals as documented. Pt's blood pressure
at 2218 was 182/100. Notified JIMY Tubbs and received one time dose of IV Apresoline (see MAR).
[2024-08-21 05:15] LABS: Hematocrit 35.4 % (39.0-52.0); Hemoglobin 12.4 g/dL (13.0-18.0); Mean Corp Hgb Conc. 35.0 g/dL (33.0-37.0); Mean Corpuscular Volume 103.5 fL (80.0-94.0); Platelet Count 110 10^3/uL (130-400); Red Cell Dist. Width 12.9 % (11.5-14.5)
[2024-08-21 05:47] LABS: Blood Urea Nitrogen 41 mg/dl (9-20); Calcium 8.5 mg/dl (8.4-10.2); Carbon Dioxide 27 mmol/L (22-30); Chloride 105 mmol/L (98-107); Estimated Creatinine Clearance 98 ml/min; Glucose 149 mg/dl (70-99); Potassium 3.6 mmol/L (3.5-5.1); Sodium 139 mmol/L (135-145); eGFR > 60.00
[2024-08-21] MEDS: DUONEB 3 ML INH ×4 (07:30→19:19)
[2024-08-21] MEDS: KEPPRA 500 MG PO ×2 (09:58→21:25)
[2024-08-21] MEDS: LIPITOR 80 MG PO (09:58)
[2024-08-21] MEDS: DELTASONE 40 MG PO (09:59)
[2024-08-21] MEDS: LASIX 40 MG PO (10:00)
[2024-08-21] MEDS: COREG 25 MG PO (10:00)
[2024-08-21] MEDS: ZITHROMAX 500 MG PO (10:00)
[2024-08-21] MEDS: FOLVITE 1 MG PO (10:01)
[2024-08-21] MEDS: NICODERM TRANSDERMAL 14 MG TRANSDERM (10:01)
[2024-08-21] MEDS: VITAMIN B1 100 MG PO ×2 (10:02→21:25)
[2024-08-21] MEDS: DIOVAN 80 MG PO (10:47)
--- NOTE | 2024-08-21 11:08 | PTCARENOTE ---
Patient confused and drowsy. MSAS score 3. Patient sleeping intermittently, easily arousable. Using urinal independently. BP's elevated 160/90's. Will continue to monitor.
--- NOTE | 2024-08-21 12:38 | CM ---
Patient with Dx Acute hypoxemic respiratory failure due to COPD exacerbation, Alcohol use disorder. Room air. Receiving IV Ativan prn. MSAS. Per nurse; confused, requires assist of 2.
Met with patient who seems too sedated at present to converse with.
Spoke with patient's Gena;
the patient resides with his brother Konrad in a 2 story house, with first floor bedroom/bath.
He was independent in ADLs and ambulation without using an assistive device.
Per the patient has been drinking a lot for a while, and has been falling frequently at home. He fell within the last week.
Gena states she is from the patient.
DME - RW
VN-none
[facility]
PCP - Eliu Leone
Pharmacy - [facility] [place]
Message to Dr Varela requesting PT/OT Evals. Patient may benefit from Substance Abuse consult as well.
Plan follow up after seen by PT/OT.
--- NOTE | 2024-08-21 14:36 | W.PN.HOSP.TC ---
Today's Communication/Plan
-
Assessment / Plan
Assessment / Plan
NAD, lying in bed comfortable, slight tremors
Scleral Anicteric
MMM
No JVD
CTABL
RRR, S1/S2
Soft, NT, ND, BS+
Warm, Dry
AAOx3
Calm
Acute hypoxemic respiratory failure with respiratory rate of 24 and SpO2 92% on room air due to acute on chronic COPD exacerbation
Steroids
MDI/nebs
Azithromycin
Spirometer
Acapella
Alcohol use disorder
MSAS
Thiamine folate
PRN ativan
Serax every 8 30 mg begin tapering to 30 mg twice daily tomorrow
Once tremors have improved will begin PT OT
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
THiamine
B12
Folate
Can consider cymbalta 30mg daily
Ultimatly needs to stop drinking for which we discussed
Tobacco dependence
NRT offered
Seizure disorder
Keppra
Seizure precations
HLD
Continue statin
HTN
Continue antihypertensive
Anticipated Discharge: > 48 hours
Subjective/Interval History
-
Date of Service: August 21, 2024
Seen and examined. Overnight required multiple doses of Ativan to control withdrawal.
Objective Data
-
Labs:
Laboratory Results
08/21/24
04:35
WBC 5.2
Hgb 12.4 L
Hct 35.4 L
Plt Count 110 L
Sodium 139 D
Potassium 3.6
Chloride 105
Carbon Dioxide 27
BUN 41 H
Creatinine 0.7
Glucose 149 H
Calcium 8.5
Vital Signs:
Vital Signs
Temp Pulse Resp BP Pulse Ox
97.2 F 63 22 167/93 91
08/21/24 11:05 08/21/24 11:27 08/21/24 11:27 08/21/24 10:00 08/21/24 11:27
I&O
08/20/24 08/21/24 08/22/24
06:59 06:59 06:59
Intake Total 660 / 660
Output Total 250 / 250 100 / 100
Balance -250 / -250 560 / 560
[2024-08-21] MEDS: LOVENOX 40 MG SC (17:38)
[2024-08-21] MEDS: ASPIR LOW (ENTERIC COATED) 81 MG PO (21:25)
[2024-08-21] MEDS: COREG PO (21:52)
[2024-08-22] VITALS (15 sets, daily range): BP systolic 119–205; BP diastolic 75–132
--- NOTE | 2024-08-22 02:40 | PTCARENOTE ---
assumed care of pt from dayshift RN. Pt aaox1, only to self, and HABEMATOLEL. Pt NSR with occasional PVCs and PACs on monitor. SpO2 93% on 2L NC. Assessment and vital signs as documented. Pt resting in bed with bed alarm on and call barreto in reach.
[2024-08-22 06:09] LABS: Hematocrit 36.0 % (39.0-52.0); Hemoglobin 12.4 g/dL (13.0-18.0); Mean Corp Hgb Conc. 34.4 g/dL (33.0-37.0); Mean Corpuscular Volume 104.7 fL (80.0-94.0); Platelet Count 97 10^3/uL (130-400); Red Cell Dist. Width 13.0 % (11.5-14.5)
[2024-08-22 06:11] LABS: Blood Urea Nitrogen 40 mg/dl (9-20); Calcium 8.6 mg/dl (8.4-10.2); Carbon Dioxide 31 mmol/L (22-30); Chloride 107 mmol/L (98-107); Estimated Creatinine Clearance 115 ml/min; Glucose 129 mg/dl (70-99); Potassium 3.4 mmol/L (3.5-5.1); Sodium 141 mmol/L (135-145); eGFR > 60.00
[2024-08-22] MEDS: DUONEB 3 ML INH ×4 (07:41→21:43)
[2024-08-22] MEDS: NICODERM TRANSDERMAL 14 MG TRANSDERM (08:27)
[2024-08-22] MEDS: SERAX 30 MG PO (08:28)
[2024-08-22] MEDS: DELTASONE 40 MG PO (08:29)
[2024-08-22] MEDS: KEPPRA 500 MG PO ×2 (08:29→19:30)
[2024-08-22] MEDS: LASIX 40 MG PO (08:30)
[2024-08-22] MEDS: ZITHROMAX 500 MG PO (08:30)
[2024-08-22] MEDS: VITAMIN B1 100 MG PO ×2 (08:30→19:30)
[2024-08-22] MEDS: FOLVITE 1 MG PO (08:31)
[2024-08-22] MEDS: THIAMINE INJECTION 200 MG IV ×2 (08:31→16:29)
[2024-08-22] MEDS: LIPITOR 80 MG PO (08:31)
[2024-08-22] MEDS: COREG 25 MG PO ×2 (09:30→19:30)
[2024-08-22] MEDS: DIOVAN 80 MG PO (09:30)
--- NOTE | 2024-08-22 15:58 | W.PN.HOSP.TC ---
Today's Communication/Plan
-
Assessment / Plan
Assessment / Plan
NAD, lying in bed comfortable, slight tremors
Scleral Anicteric
MMM
No JVD
CTABL
RRR, S1/S2
Soft, NT, ND, BS+
Warm, Dry
AAOx3
Calm
Acute hypoxemic respiratory failure with respiratory rate of 24 and SpO2 92% on room air due to acute on chronic COPD exacerbation
Steroids
MDI/nebs
Azithromycin
Spirometer
Acapella
Alcohol use disorder
MSAS
Thiamine folate
PRN ativan
Serax transition from 30 mg every 8 to 15 mg every 8
Once tremors have improved will begin PT OT
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
THiamine
B12
Folate
Can consider cymbalta 30mg daily
Ultimatly needs to stop drinking for which we discussed
Hypokalemia replete
Tobacco dependence
NRT offered
Seizure disorder
Keppra
Seizure precations
HLD
Continue statin
HTN
Continue antihypertensive
PT OT consulted
Anticipated Discharge: > 48 hours
Subjective/Interval History
-
Date of Service: August 22, 2024
Seen and examined. No new complaints. No acute overnight events.
Objective Data
-
Labs:
Laboratory Results
08/22/24
05:34
WBC 5.2
Hgb 12.4 L
Hct 36.0 L
Plt Count 97 L
Sodium 141
Potassium 3.4 L
Chloride 107
Carbon Dioxide 31 H
BUN 40 H
Creatinine 0.6 L
Glucose 129 H
Calcium 8.6
Vital Signs:
Vital Signs
Temp Pulse Resp BP Pulse Ox
98.0 F 62 20 119/80 93
08/22/24 15:44 08/22/24 15:15 08/22/24 15:15 08/22/24 14:00 08/22/24 15:15
I&O
08/21/24 08/22/24 08/23/24
06:59 06:59 06:59
Intake Total 660 / 660 675 / 675
Output Total 100 / 100 1530 / 1530
Balance 560 / 560 -855 / -855
[2024-08-22] MEDS: KCL 40 MEQ PO (16:29)
[2024-08-22] MEDS: SERAX 15 MG PO ×2 (16:29→22:59)
[2024-08-22] MEDS: FLUSH (NSS) 1 FLUSH IV (16:30)
[2024-08-22] MEDS: LOVENOX 40 MG SC (18:22)
--- NOTE | 2024-08-22 18:27 | PTCARENOTE ---
Report given to Torri FIGUEROA. Patient transferred to [address] [place] [address] [id number]. All belongings are with the patient.
[2024-08-22] MEDS: ATIVAN 1 MG PO (19:30)
[2024-08-22] MEDS: ASPIR LOW (ENTERIC COATED) 81 MG PO (21:21)
[2024-08-22] MEDS: APRESOLINE 5 MG IV (23:31)
[2024-08-23] VITALS (10 sets, daily range): BP systolic 130–180; BP diastolic 78–102; PULSE 58–65; O2SAT 96–97
[2024-08-23] MEDS: ATIVAN 1 MG PO (02:38)
[2024-08-23 07:32] LABS: Hematocrit 37.9 % (39.0-52.0); Hemoglobin 13.0 g/dL (13.0-18.0); Mean Corp Hgb Conc. 34.3 g/dL (33.0-37.0); Mean Corpuscular Volume 104.4 fL (80.0-94.0); Platelet Count 102 10^3/uL (130-400); Red Cell Dist. Width 12.5 % (11.5-14.5)
[2024-08-23] MEDS: DUONEB 3 ML INH ×4 (07:39→19:55)
[2024-08-23 07:56] LABS: Blood Urea Nitrogen 33 mg/dl (9-20); Calcium 8.9 mg/dl (8.4-10.2); Carbon Dioxide 27 mmol/L (22-30); Chloride 109 mmol/L (98-107); Estimated Creatinine Clearance 115 ml/min; Glucose 101 mg/dl (70-99); Potassium 4.0 mmol/L (3.5-5.1); Sodium 139 mmol/L (135-145); eGFR > 60.00
[2024-08-23] MEDS: NICODERM TRANSDERMAL 14 MG TRANSDERM (08:52)
[2024-08-23] MEDS: COREG 25 MG PO ×2 (08:52→20:22)
[2024-08-23] MEDS: LIPITOR 80 MG PO (08:53)
[2024-08-23] MEDS: DIOVAN 80 MG PO (08:53)
[2024-08-23] MEDS: VITAMIN B1 100 MG PO ×2 (08:53→20:22)
[2024-08-23] MEDS: DELTASONE 40 MG PO (08:53)
[2024-08-23] MEDS: ZITHROMAX 500 MG PO (08:53)
[2024-08-23] MEDS: KEPPRA 500 MG PO ×2 (08:54→20:22)
[2024-08-23] MEDS: FOLVITE 1 MG PO (08:54)
[2024-08-23] MEDS: SERAX 15 MG PO ×2 (08:54→17:30)
[2024-08-23] MEDS: LASIX 40 MG PO (08:54)
[2024-08-23] MEDS: FLUSH (NSS) 1 FLUSH IV (08:57)
--- NOTE | 2024-08-23 09:35 | W.PN.HOSP.TC ---
Today's Communication/Plan
-
Assessment / Plan
Assessment / Plan
NAD, lying in bed comfortable, slight tremors
Scleral Anicteric
MMM
No JVD
CTABL
RRR, S1/S2
Soft, NT, ND, BS+
Warm, Dry
AAOx3
Calm
Acute hypoxemic respiratory failure with respiratory rate of 24 and SpO2 92% on room air due to acute on chronic COPD exacerbation
Steroids x 5 days
MDI/nebs
Azithromycin x 5 days
Spirometer
Acapella
Alcohol use disorder
MSAS
Thiamine folate
PRN ativan
Serax transition from 30 mg every 8 to 15 mg every 8
--As needed continue CIWA 15mg q8
Once tremors have improved will begin PT OT
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
THiamine
B12
Folate
Can consider cymbalta 30mg daily
Ultimatly needs to stop drinking for which we discussed
Hypokalemia replete
Tobacco dependence
NRT offered
Seizure disorder
Keppra
Seizure precations
HLD
Continue statin
HTN
Continue antihypertensive
PT OT recommended SNF
Anticipated Discharge: 24 - 48 hours
Subjective/Interval History
-
Date of Service: August 23, 2024
Seen and examined. Overnight per nursing required additional doses of Ativan.
Otherwise feeling better
Still unsteady on his feet. Numbness tingling improving though lower extremities
Objective Data
-
Labs:
Laboratory Results
08/23/24
06:22
WBC 6.6
Hgb 13.0
Hct 37.9 L
Plt Count 102 L
Sodium 139
Potassium 4.0
Chloride 109 H
Carbon Dioxide 27
BUN 33 H
Creatinine 0.5 L
Glucose 101 H
Calcium 8.9
Vital Signs:
Vital Signs
Temp Pulse Resp BP Pulse Ox
98.2 F 54 16 180/98 97
08/23/24 07:17 08/23/24 07:45 08/23/24 07:45 08/23/24 07:20 08/23/24 07:45
I&O
08/22/24 08/23/24 08/24/24
06:59 06:59 06:59
Intake Total 675 / 675 1800 / 1800
Output Total 1530 / 1530 1470 / 1470
Balance -855 / -855 330 / 330
[2024-08-23] MEDS: LOVENOX 40 MG SC (17:30)
[2024-08-23] MEDS: ASPIR LOW (ENTERIC COATED) 81 MG PO (20:22)
[2024-08-24] MEDS: SERAX 15 MG PO ×4 (02:09→23:55)
[2024-08-24 07:41] VITALS: BP 162/91
[2024-08-24 07:44] LABS: Blood Urea Nitrogen 24 mg/dl (9-20); Calcium 8.7 mg/dl (8.4-10.2); Carbon Dioxide 25 mmol/L (22-30); Chloride 105 mmol/L (98-107); Estimated Creatinine Clearance 115 ml/min; Glucose 94 mg/dl (70-99); Potassium 3.7 mmol/L (3.5-5.1); Sodium 136 mmol/L (135-145); eGFR > 60.00
[2024-08-24] MEDS: DUONEB 3 ML INH (07:52)
[2024-08-24 07:59] LABS: Hematocrit 39.2 % (39.0-52.0); Hemoglobin 13.9 g/dL (13.0-18.0); Mean Corp Hgb Conc. 35.5 g/dL (33.0-37.0); Mean Corpuscular Volume 104.3 fL (80.0-94.0); Platelet Count 107 10^3/uL (130-400); Red Cell Dist. Width 12.6 % (11.5-14.5)
[2024-08-24] MEDS: DIOVAN 160 MG PO (08:35)
[2024-08-24] MEDS: NICODERM TRANSDERMAL 14 MG TRANSDERM (08:35)
[2024-08-24] MEDS: LIPITOR 80 MG PO (08:36)
[2024-08-24] MEDS: DELTASONE 40 MG PO (08:36)
[2024-08-24] MEDS: LASIX 40 MG PO (08:36)
[2024-08-24] MEDS: VITAMIN B1 100 MG PO ×2 (08:36→20:29)
[2024-08-24] MEDS: ZITHROMAX 500 MG PO (08:37)
[2024-08-24] MEDS: KEPPRA 500 MG PO ×2 (08:37→20:25)
[2024-08-24] MEDS: COREG 25 MG PO ×2 (08:37→20:28)
[2024-08-24] MEDS: FOLVITE 1 MG PO (08:37)
[2024-08-24 15:03] VITALS: BP 98/64
--- NOTE | 2024-08-24 15:59 | W.PN.HOSP.TC ---
Today's Communication/Plan
-
Assessment / Plan
Assessment / Plan
NAD, lying in bed comfortable, slight tremors
Scleral Anicteric
MMM
No JVD
CTABL
RRR, S1/S2
Soft, NT, ND, BS+
Warm, Dry
AAOx3
Calm
Acute hypoxemic respiratory failure with respiratory rate of 24 and SpO2 92% on room air due to acute on chronic COPD exacerbation
Steroids x 5 days
MDI/nebs
Azithromycin x 5 days
Spirometer
Acapella
Alcohol use disorder
MSAS
Thiamine folate
PRN ativan
Serax transition from 30 mg every 8 to 15 mg every 8
--As needed continue CIWA 15mg q12
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
Thiamine/folate
Can consider cymbalta 30mg daily
Ultimatly needs to stop drinking for which we discussed
Hypokalemia replete
Tobacco dependence
NRT offered
Seizure disorder
Keppra
Seizure precations
HLD
Continue statin
HTN
Continue antihypertensive
PT OT recommended SNF
Needs to remain off of 1:1 for 24hours
Anticipated Discharge: 24 - 48 hours
Subjective/Interval History
-
Date of Service: August 24, 2024
seen and examined. no new comaplints. no acute overnight events
Objective Data
-
Labs:
Laboratory Results
08/24/24
06:08
WBC 6.3
Hgb 13.9
Hct 39.2
Plt Count 107 L
Sodium 136
Potassium 3.7
Chloride 105
Carbon Dioxide 25
BUN 24 H
Creatinine 0.5 L
Glucose 94
Calcium 8.7
Vital Signs:
Vital Signs
Temp Pulse Resp BP Pulse Ox
98.6 F 60 18 98/64 94
08/24/24 15:03 08/24/24 15:03 08/24/24 15:03 08/24/24 15:03 08/24/24 15:03
I&O
08/23/24 08/24/24 08/25/24
06:59 06:59 06:59
Intake Total 1800 / 1800 1260 / 1260 1360 / 1360
Output Total 1470 / 1470 1020 / 1020 810 / 810
Balance 330 / 330 240 / 240 550 / 550
--- NOTE | 2024-08-24 16:10 | CM ---
PT OT indicated SNF.
Spoke with Gena instrument person.
Gena requested [facility].
Pt has Medicare.
PLAN To Snf after located .
[2024-08-24] MEDS: LOVENOX 40 MG SC (17:42)
[2024-08-24] MEDS: ASPIR LOW (ENTERIC COATED) 81 MG PO (21:58)
[2024-08-24 23:15] VITALS: BP 139/76
[2024-08-25 06:58] LABS: Urine Character Clear (Clear)
[2024-08-25 07:24] VITALS: BP 179/99
[2024-08-25 07:32] LABS: Hematocrit 33.4 % (39.0-52.0); Hemoglobin 11.7 g/dL (13.0-18.0); Mean Corp Hgb Conc. 35.0 g/dL (33.0-37.0); Mean Corpuscular Volume 103.7 fL (80.0-94.0); Platelet Count 99 10^3/uL (130-400); Red Cell Dist. Width 12.5 % (11.5-14.5)
[2024-08-25 07:55] LABS: Blood Urea Nitrogen 23 mg/dl (9-20); Calcium 8.4 mg/dl (8.4-10.2); Carbon Dioxide 28 mmol/L (22-30); Chloride 103 mmol/L (98-107); Estimated Creatinine Clearance 115 ml/min; Glucose 96 mg/dl (70-99); Potassium 3.4 mmol/L (3.5-5.1); Sodium 135 mmol/L (135-145); eGFR > 60.00
[2024-08-25] MEDS: KEPPRA 500 MG PO (08:24)
[2024-08-25] MEDS: NICODERM TRANSDERMAL 14 MG TRANSDERM (08:24)
[2024-08-25] MEDS: DELTASONE 40 MG PO (08:25)
[2024-08-25] MEDS: LASIX 40 MG PO (08:25)
[2024-08-25] MEDS: SERAX 15 MG PO (08:25)
[2024-08-25] MEDS: VITAMIN B1 100 MG PO (08:25)
[2024-08-25] MEDS: COREG 25 MG PO (08:26)
[2024-08-25] MEDS: FOLVITE 1 MG PO (08:26)
[2024-08-25] MEDS: DIOVAN 160 MG PO (08:26)
[2024-08-25] MEDS: LIPITOR 80 MG PO (08:26)
[2024-08-25 10:30] VITALS: BP 103/66; BP 136/77; PULSE 61; O2SAT 94
--- NOTE | 2024-08-25 11:17 | W.PN.HOSP.TC ---
Today's Communication/Plan
-
Discharge
Assessment / Plan
Assessment / Plan
Gen-AAOx3, NAD
HEENT-NC, AT, anicteric, clear oral mm
Neck-supple
CV-reg, no M, +S1/S2
Lungs-clear B/L
Abd-soft, NT, ND
Ext-no edema
Musculoskeletal-no cyanosis, clubbing
Skin-warm and dry
Neuro-grossly non-focal
Psych-calm, cooperative
Acute hypoxemic respiratory failure -with respiratory rate of 24 and SpO2 92% on room air due to acute on chronic COPD exacerbation
Steroids x 5 days
MDI/nebs
Completed 5 days of azithromycin.
Alcohol use disorder
MSAS
Thiamine folate
PRN ativan
Serax taper, currently on 15 mg 3 times daily.
Patient states he is interested in abstaining from further alcohol use. I asked social work to provide information regarding outpatient rehab.
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
Thiamine/folate
Can consider cymbalta 30mg daily
Ultimatly needs to stop drinking for which we discussed
Hypokalemia -3.4 today. Check magnesium level. Will order KCl.
Tobacco dependence -patient interested in abstaining from further tobacco use.
NRT offered
Seizure disorder
Keppra
Seizure precations
Hyperlipidemia
Continue statin
Essential hypertension
Continue antihypertensive
Dispo -medically stable for discharge. Cleared by physical therapy. Left a voicemail for patient's brother to call me back. Patient is from his .
Recommend outpatient follow-up with PCP and pulmonary. Discussed with patient.
Outpatient alcohol rehab.
32 minutes spent in discharge process.
Anticipated Discharge: Today
Subjective/Interval History
-
Date of Service: August 25, 2024
Patient seen and examined. No complaints.
Objective Data
-
Labs:
Laboratory Results
08/25/24
05:43
WBC 5.9
Hgb 11.7 L
Hct 33.4 L
Plt Count 99 L
Sodium 135
Potassium 3.4 L
Chloride 103
Carbon Dioxide 28
BUN 23 H
Creatinine 0.6 L
Glucose 96
Calcium 8.4
Vital Signs:
Vital Signs
Temp Pulse Resp BP Pulse Ox
97.6 F 53 16 179/99 98
08/25/24 07:24 08/25/24 08:25 08/25/24 07:24 08/25/24 08:25 08/25/24 08:50
I&O
08/24/24 08/25/24 08/26/24
06:59 06:59 06:59
Intake Total 1260 / 1260 2800 / 2800
Output Total 1020 / 1020 1900 / 1900
Balance 240 / 240 900 / 900
Review of Systems
-
History Source: Patient
All other systems: Reviewed and negative
--- NOTE | 2024-08-25 11:41 | W.DS.TRANS ---
DC Summary - Health Care / Medical Job Titles
-
Discharge Instructions:
Discharge Diagnosis/Procedures COPD exacerbation, alcohol withdrawal syndrome
Diet Regular
Activity As tolerated
Driving Restrictions No driving for 1 week
Bathing Restrictions None
Instructions:
Stand-Alone Forms:
Changes to Home Medications: No
Discharge Medications:
DC Medications w/original date entered in [facility]
carvedilol 25 mg tablet (Coreg) 25 mg PO BID Blood Pressure 10/26/17
levetiracetam 500 mg tablet 500 mg PO BID Neurological Condition 10/26/17
atorvastatin 80 mg tablet 80 mg PO DAILY High Cholesterol 01/19/24
cyanocobalamin (vitamin B-12) 1,000 mcg tablet 1,000 mcg PO DAILY Supplement 04/10/24
aspirin 81 mg tablet,delayed release 81 mg PO HS Heart Disease/Condition 08/20/24
psyllium 1 packet PO DAILYPRN PRN constipation 08/20/24
albuterol sulfate 90 mcg/actuation aerosol inhaler (Ventolin HFA) 2 puff inhalation 6XD PRN shortness of breath or wheezing #8.5 grams 08/25/24
folic acid 1 mg tablet 1 mg PO DAILY #30 tabs 08/25/24
furosemide 40 mg tablet 40 mg PO DAILY #30 tabs 08/25/24
nicotine (polacrilex) 2 mg gum 2 mg PO Q2HPRN PRN nicotine craving #0 ea 08/25/24
nicotine 14 mg/24 hr daily transdermal patch 14 mg transdermal DAILY #0 ea 08/25/24
oxazepam 15 mg capsule 15 mg PO DIRECTED #9 caps 08/25/24
potassium chloride 20 mEq tablet,extended release (K-Tab) 20 meq PO DAILY #30 tabs 08/25/24
thiamine mononitrate (vit B1) 100 mg tablet 100 mg PO BID #60 tabs 08/25/24
valsartan 160 mg tablet 160 mg PO DAILY #30 tabs 08/25/24
Home Medication Changes
Pending Results: No
[2024-08-25] MEDS: KCL 40 MEQ PO (11:44)
--- NOTE | 2024-08-25 12:01 | CM ---
MD entered order for discharge.
PT marques recommended VN . Ambulated 150 feet with out AD.
Spoke with Donald to see him for recourses.
Spoke with Gena [phone] she was informed of above.
Offered VN she requested [facility] Radha Smiley notified of referral.
Reviewed IMM with Gena. She stated she agrees with discharge.
Gena will drive him home today.
PLAN Home with VN
[2024-08-25 12:10] LABS: Magnesium 1.5 mg/dl (1.6-2.3)
[2024-08-25 12:50] VITALS: BP 100/62
--- NOTE | 2024-08-25 14:52 | VNURNOTE ---
[facility] referral completed in [facility]. Unable to meet patient prior to DC.
--- NOTE | 2024-08-25 15:40 | CM ---
TC from spouse, Cate. Pharmacy was out of narcotic and she requested if be called to another pharmacy: [facility] located at [address] [place] [address], [place], phone# [phone], [id number].
CM updated preferred pharmacy for narcotic in [facility].
TT to , he will send script electronically.
Spouse Cate updated.
--- NOTE | 2024-08-26 10:46 | VNURNOTE ---
Home Health Liaison met with patient at bedside to discuss [facility] nurse/therapy, visits, schedule and homebound status. Patient is agreeable and understands that visits at home will be 2-3 x per week to assess and teach medical management. Homebound
criteria explained at length.
Patient is aware that [facility] will contact them for start of care in 1-2 days after discharge from .
[facility] referral accepted in [facility].
== END 2024-08-25 13:30 | disposition home health service (06) | DRG 896 ==
LOC: 4 EAST ACU 09:28
PROVIDERS: Nurse Practitioner Gerontology; ADMITTING PHYSICIAN Hospitalist; ATTENDING PHYSICIAN Hospitalist; EMERGENCY PHYSICIAN Student in an Organized Health Care Education/Training Program
DX: F10.239 Alcohol dependence with withdrawal, unspecified (principal); J96.01 Acute respiratory failure with hypoxia; J44.1 Chronic obstructive pulmonary disease with (acute) exacerbation; G62.1 Alcoholic polyneuropathy; F17.200 Nicotine dependence, unspecified, uncomplicated; G40.909 Epilepsy, unspecified, not intractable, without status epilepticus; I10 Essential (primary) hypertension; E78.5 Hyperlipidemia, unspecified; E87.6 Hypokalemia; Z79.899 Other long term (current) drug therapy
CPT/HCPCS: 71046; 80048; 80053; 81003; 83735; 83880; 84484; 85025; 85027; 93005; 94640; 96372; 96374; 97162; 97166; 97530; 99291

== ENCOUNTER 2025-01-31 14:04 | Emergency (ER) | payer MEDICARE, SELFPAY ==
[2025-01-31 14:09] VITALS: BP 129/66
--- NOTE | 2025-01-31 15:19 | ED.GENMED ---
History of Present Illness
General
Chief Complaint: Skin Problem
Time Seen by Provider: 01/31/25 15:13
History of Present Illness
History of Present Illness:
Vito is a 74-year-old male with past medical history of hypertension who presents after a fall 2 weeks ago where he was seen at an outside hospital no injuries were identified but he sustained right periorbital ecchymosis. The ecchymosis is
resolving but not completely gone and he was concerned it was not healing quickly. Denies any pain, headaches, changes in vision.
Past History
Past History
ED Past Medical History: CAD, HTN, Hypercholesterolemia, IN and Seizures
ED Past Surgical History: Cardiac
Social History
Tobacco: Smoker
Alcohol: Chronic alcoholic
Drug: None
Personal:
Living: with family
Employment: Retired
Family History
Family History: Other (nc)
Phy Exam
General Physical Exam
General Presentation: well appearing and no apparent distress
General Skin: warm and dry
General Habitus: normal
General Mental: alert
General Hydration: appears well hydrated
ENT Exam
ENT Exam: EOMI, pharynx normal, neck supple and normocephalic
Eye Exam
Eye Exam: PERRL, cornea clear and conjunctiva normal
Cardiovascular Exam
Cardiovascular Exam: regular rate/rhythm, no edema, no murmur and normal peripheral pulses
Pulmonary Exam
Pulmonary Exam: lungs clear, no respiratory distress, no rales, no crackles, no rhonchi, no stridor, no wheezing and no cough
Gastrointestinal Exam
Gastrointestinal Exam: normal bowel sounds, non tender, soft, no organomegaly, no pulsatile mass and non distended
Neurological Exam
Neurological Exam: alert, oriented x3, no motor deficits and speech normal
Musculoskeletal Exam
Musculoskeletal Exam: full ROM and no edema
Skin Exam
Skin Exam: normal color, warm/dry, no rash, no petechia and other (Yellow to purple ecchymosis under right eye)
Psychiatric Exam
Psychiatric Exam: normal mood/affect
Course
Vital Signs
Initial and Last Documented VS:
Initial Vital Signs
Temp Pulse Resp BP Pulse Ox
36.8 C 85 16 129/66 98
01/31/25 14:09 01/31/25 14:09 01/31/25 14:09 01/31/25 14:09 01/31/25 14:09
Last Documented Vital Signs
Temp Pulse Resp BP Pulse Ox
36.8 C 85 16 129/66 98
01/31/25 14:09 01/31/25 14:09 01/31/25 14:09 01/31/25 14:09 01/31/25 14:09
MDM/Problems Addressed
Differential Diagnosis Includes:
Discussed with patient that ecchymosis can take several weeks to heal. Reassured patient that area appears well and is healing given that there are areas of yellow-green around the dark purple bruise. No indication for any imaging as patient has
already had this completed. No prescriptions will ecchymosis to resolve any closure.
*Pulse Oximetry
SaO2: 98
Oxygen Mode of Delivery: Room air
Patient hypoxic: no
*Critical Care Note
Total Time (30-74mins, 75-104mins- exclusive of procedures): Not Applicable
ED Attending Note
-
Portions of this chart may have been created with voice recognition software.� Occasional wrong word or��sound alike� substitutions may have occurred due to the inherent limitations of voice recognition software.
Discharge Plan
Departure
Patient Disposition: Home (Routine Discharge)
Date of Disposition: 01/31/25
Time of Disposition: 15:19
Patient with high blood pressure during this ER visit?: No
Discharge Problem:
Periorbital ecchymosis of right eye
Instructions: Taking care of bruises
Prescriptions:
No Action
carvedilol [Coreg] 25 MG tablet
25 mg PO BID
levetiracetam 500 MG tablet
500 mg PO BID
atorvastatin 80 mg Tablet
80 mg PO DAILY
cyanocobalamin (vitamin B-12) 1,000 mcg Tablet
1,000 mcg PO DAILY
psyllium Packet
1 packet PO DAILYPRN PRN (Reason: constipation)
aspirin 81 mg Tablet,Delayed Release (Dr/Ec)
81 mg PO HS
furosemide 40 mg Tablet
40 mg PO DAILY Qty: 30 0RF
nicotine 14 mg/24 hr Patch 24 Hour
14 mg transdermal DAILY Qty: 0 0RF
nicotine (polacrilex) 2 mg Gum
2 mg PO Q2HPRN PRN (Reason: nicotine craving) Qty: 0 0RF
oxazepam 15 mg Capsule
15 mg PO DIRECTED Qty: 9 0RF
Rx Instructions:
1 cap twice daily for 3 days then 1 cap once daily for 3 days.
folic acid 1 mg Tablet
1 mg PO DAILY Qty: 30 0RF
valsartan 160 mg Tablet
160 mg PO DAILY Qty: 30 0RF
thiamine mononitrate (vit B1) 100 mg Tablet
100 mg PO BID Qty: 60 0RF
potassium chloride [K-Tab] 20 mEq tablet extended release
20 meq PO DAILY Qty: 30 0RF
albuterol sulfate [Ventolin HFA] 90 mcg/actuation HFA aerosol inhaler
2 puff inhalation 6XD PRN (Reason: shortness of breath or wheezing) Qty: 8.5 0RF
Referrals:
Eliu Leone MD [Family Provider, Family Practice]
Activity Restrictions/Additional Instructions:
Bruise under your eye appears to be healing. Continue with [id number] skin moisturizers. No prescription medications will help the bruise to heal any quicker.
Interventions
Interventions:
*Risk Screen - Suicide Last Done: 01/31/25 14:09
*General Assessment Last Done: 01/31/25 14:09
*Neglect/Abuse Screening Last Done: 01/31/25 14:09
ED-Skin Assessment Last Done: 01/31/25 15:13
Discharge Date and Time
Print Language: THAI
== END 2025-01-31 15:28 | disposition home or self-care (01) ==
LOC: EMR 14:04
PROVIDERS: EMERGENCY PHYSICIAN Student in an Organized Health Care Education/Training Program; FAMILY PHYSICIAN Family Medicine
DX: S00.11XA Contusion of right eyelid and periocular area, initial encounter (principal); W19.XXXA Unspecified fall, initial encounter; I25.10 Atherosclerotic heart disease of native coronary artery without angina pectoris; I10 Essential (primary) hypertension; E78.00 Pure hypercholesterolemia, unspecified; F17.200 Nicotine dependence, unspecified, uncomplicated
CPT/HCPCS: 99282